=== PATIENT | male | born 1960 | race Caucasian/White ===

== ENCOUNTER → 2016-10-03 | Outpatient (CLI) | payer OTHER ==
--- NOTE | 2016-10-03 09:57 | DIAGNOSTIC IMAGING REPORT ---
ULTRASOUND ABDOMEN COMPLETE CLINICAL HISTORY: Abnormal liver function studies. COMPARISON STUDY: No priors. TECHNIQUE: Real-time, grayscale, and color flow sonography of the abdomen was performed. Images are reviewed in the transverse and longitudinal planes. FINDINGS: Liver: The liver is top normal in size and demonstrates heterogeneously increased echotexture consistent with hepatic steatosis. There is no intrahepatic biliary ductal dilatation. The main portal vein is patent. Gallbladder: A 3 mm gallbladder polyp is incidentally noted. The gallbladder is otherwise normal in appearance. No gallstones are identified. There is no gallbladder wall thickening or pericholecystic fluid. A sonographic Crowley's sign is reportedly absent. The common bile duct measures up to 0.4 cm in diameter. Pancreas: Not well visualized due to overlying bowel gas. Spleen: The spleen is normal in size and echotexture, measuring 11.8 cm in length. Kidneys: The kidneys demonstrate mild cortical atrophy and are normal in echotexture. There is no hydronephrosis. The right kidney measures 11.1 cm in length and the left kidney measures 11.2 cm in length. No shadowing calculi are identified. There is an irregular hypoechoic region identified in the lower pole of left kidney. This measures approximately 4 x 3 x 3 cm. Abdominal vasculature: Visualized portions of the abdominal aorta are normal in appearance. Ascites: None. IMPRESSION: 1. Hepatomegaly and hepatic steatosis. 2. A 3 m gallbladder polyp is incidentally noted. 3. The pancreas was not well visualized due to overlying bowel gas. 4. There is focal irregularity/thickening suggested in the lower pole of the left kidney. Follow-up with a contrast-enhanced abdominal CT is recommended to exclude underlying renal mass. Electronically signed by: Devendra Palencia M.D. 10/03/2016 9:56 AM Dictated Date/Time: 10/03/2016 9:53 AM
== END | disposition home or self-care (01) ==
LOC: C.ULTR 08:58
PROVIDERS: ATTEND Family Medicine
DX: R94.5 Abnormal results of liver function studies (principal)

== ENCOUNTER → 2016-10-16 | Outpatient (CLI) | payer OTHER ==
[~2016-10-16] MED LIST: OPTIRAY 320 IV PRN
--- NOTE | 2016-10-16 13:13 | DIAGNOSTIC IMAGING REPORT ---
ABDOMEN AND PELVIS CT EXAMINATION PRE AND POST INTRAVENOUS CONTRAST CT DOSE: 2276.77 mGycm HISTORY: Renal mass ABN ULTRASOUND, R/O RENAL MASS TECHNIQUE: Multiaxial CT images of the abdomen and pelvis were performed pre and post intravenous contrast enhancement. COMPARISON STUDY: Ultrasound dated 10/03/2016. FINDINGS: Lung bases are clear. Liver enhances uniformly. Gallbladder is negative for distention. Right kidney demonstrates a 5 mm cyst is lower pole. Enhancement characteristics otherwise are uniform. Left kidney demonstrates a 2.5 cm cyst at its lower pole. This is slightly hyperdense. It shows no abnormal enhancement characteristics. No well-defined additional abnormalities identified. There is a cortical scar lateral aspect left kidney. This again shows no abnormal enhancement characteristics. The adrenal glands are unremarkable. Bowel pattern is nonobstructive throughout. Bladder is midline. Ureters normal in course and caliber. No filling defects within the bladder appreciated. There is no significant abdominal pelvic or inguinal adenopathy. IMPRESSION: 1. Lower pole slightly hyperdense left renal cyst. 2. This is a combined with immediately adjacent cortical scar considered benign. 3. No pathologic lesions are identified of the ultrasonic findings appear to be benign. 4. Small right renal cyst. 5. Otherwise negative abdomen and pelvis Electronically signed by: Elvin Chavez M.D. 10/16/2016 1:12 PM Dictated Date/Time: 10/16/2016 1:07 PM
== END | disposition home or self-care (01) ==
LOC: C.CTS 10:20
PROVIDERS: ATTEND Family Medicine
DX: R93.422 Abnormal radiologic findings on diagnostic imaging of left kidney (principal); N28.1 Cyst of kidney, acquired

== ENCOUNTER → 2017-08-05 | Day surgery (SDC) | payer OTHER ==
[2017-07-22 10:43] VITALS: Ht 175.3 cm; Wt 79.5 kg
[~2017-08-05] VITALS: Ht 175.3 cm; Wt 79.5 kg
[~2017-08-05] MED LIST changes: +ATOR10TA82 PO; +LIDOCAINE HCL 2% 2 ML VIAL (20MG/ML) ONE; +MIDAZOLAM HCL 1 MG/ML 2ML VIAL ONE; -OPTIRAY 320 IV PRN; +PROPOFOL IV EMULSION 10 MG/ML 20 ML VIAL IV ONE; +SODIUM CHLORIDE 0.9% 500ML 500 ML IV ONE; +VALSARTAN PO
--- NOTE | 2017-08-05 09:58 | Endo History and Physical ---
History & Physical Date of Service: Aug 05, 2017. Chief Complaint: Constipation Referring Physician: Dr Adams History of Present Illness 57 yo CM who presents for colonoscopy secondary to change in bowel habits. Past Surgical History Hx Cardiac Surgery: No Hx Internal Defibrillator: No Hx Pacemaker: No Hx Abdominal Surgery: No Hx of Implantable Prosthesis: No Hx Post-Op Nausea and Vomiting: No Hx Cancer Surgery: Yes (ACDF AND C5-7 FUSION) Hx Thoracic Surgery: No Hx Orthopedic: No Hx Urinary Tract Surgery: No Family History None Social History Smoking Status: Former Smoker Hx Substance Use: No Hx Alcohol Use: Yes (1-2 DRINKS WEEKLY) Allergies Coded Allergies: NO KNOWN DRUG ALLERGIES (Verified Allergy, Unknown, ., 07/22/17) Current Medications Reported Home Medications Medications Dose Route/Sig Max Daily Dose Days Date Category Dose Instructions Lipitor (Atorvastatin Calcium) 10 Mg Tab 10 Mg PO QPM 07/22/17 Reported [Valsartan] 1 Tab PO QPM 07/22/17 Reported DOSE NOT HAVE MEDICATION/DOSE AT THIS TIME Vital Signs Weight (Kilograms): 79.55 Height (Feet): 5 Height (Inches): 9 Physical Exam General Appearance: WD/WN, no apparent distress Respiratory/Chest: Auscultation: breath sounds normal Cardiovascular: Heart Auscultation: RRR Abdomen: Bowel Sounds: normal Inspection & Palpation: soft, non-distended, no tenderness, guarding & rebound Assessment and Plan Assessment: 57 yo CM who presents for colonoscopy secondary to change in bowel habits. Plan: Proceed with colonoscopy.
[2017-08-05 10:11] VITALS: TEMP 37
--- NOTE | 2017-08-05 11:26 | Discharge Instructions ---
Endoscopy Patient Instructions Date / Procedure(s) Performed Aug 05, 2017. Colonoscopy Allergy Information Coded Allergies: NO KNOWN DRUG ALLERGIES (Verified Allergy, Unknown, ., 07/22/17) Discharge Date / Findings Aug 05, 2017. Internal hemorrhoids Medication Instructions OK to resume all medications today as prescribed Reported Home Medications Medications Dose Route/Sig Max Daily Dose Days Date Category Dose Instructions Lipitor (Atorvastatin Calcium) 10 Mg Tab 10 Mg PO QPM 07/22/17 Reported [Valsartan] 1 Tab PO QPM 07/22/17 Reported DOSE NOT HAVE MEDICATION/DOSE AT THIS TIME Provider Instructions Activity Restrictions - No exercising or heavy lifting for 24 hours. - Do not drink alcohol the day of the procedure. - Do not drive a car or operate machinery until the day after the procedure. - Do not make any important decisions or sign important papers in 24 hours after the procedure. Following Day: - Return to full activity which may include returning to work/school. Diet Start your diet with liquids and light foods (jello, soup, juice, toast). Then eat your usual diet if not nauseated. Treatment For Common After Affects For mild abdominal pain, bloating, or excessive gas: - Rest - Eat lightly - Lie on right side Follow-Up Information Follow-up with Dr Adams as scheduled Anesthesia Information What You Should Know You have had a procedure that required some medicine to reduce anxiety and discomfort. This treatment is called moderate sedation. After receiving the treatment, you may be sleepy, but you will be able to breathe on your own. The effects of the treatment may last for several hours. Follow these instructions along with Activity/Diet recommendations noted above: * Do NOT do anything where dizziness or clumsiness would be dangerous. * Rest quietly at home today, then you can be up and about tomorrow. * Have a responsible person stay with you the rest of today. * You may have had an I.V. today. If so, you may take the dressing off later today. Recommendations Call your doctor if: * Trouble breathing * Continuous vomiting for more than 24 hours * Temperature above 101 degrees * Severe abdominal pain or bloating * Pain not relieved by pain medicine ordered * There is increased drainage or redness from any incision * A large amount of rectal bleeding greater than 2-3 tablespoons. (If you had a polyp/s removed or have hemorrhoids, a small amount of blood - from the rectum is to be expected.) * You have any unanswered questions or concerns. IN THE EVENT OF A SERIOUS EMERGENCY, GO TO THE NEAREST EMERGENCY ROOM Your discharge instructions were prepared by provider Cam Garza. Patient Instructions Signature Page Deric Allison Patient (or Guardian) Signature/Date: I have read and understand the instructions given to me by my caregivers. Caregiver/RN/Doctor Signature/Date: The above-named patient and/or guardian has received patient instructions on this date. + Original Patient Signature Page (only) stays with chart. Please make copy for patient.
--- NOTE | 2017-08-05 11:30 | GI REPORT ---
Procedure Date: 08/05/2017 10:57 AM Procedure: Colonoscopy Indications: Change in bowel habits Medicines: Monitored Anesthesia Care Complications: No immediate complications. Estimated Blood Loss: Estimated blood loss: none. Procedure: Pre-Anesthesia Assessment: - Prior to the procedure, a History and Physical was performed, and patient medications and allergies were reviewed. The patient's tolerance of previous anesthesia was also reviewed. The risks and benefits of the procedure and the sedation options and risks were discussed with the patient. All questions were answered, and informed consent was obtained. Prior Anticoagulants: The patient has taken no previous anticoagulant or antiplatelet agents. ASA Grade Assessment: II - A patient with mild systemic disease. After reviewing the risks and benefits, the patient was deemed in satisfactory condition to undergo the procedure. After I obtained informed consent, the scope was passed under direct vision. Throughout the procedure, the patient's blood pressure, pulse, and oxygen saturations were monitored continuously. The scope was introduced through the anus and advanced to the terminal ileum. The colonoscopy was performed without difficulty. The patient tolerated the procedure well. The quality of the bowel preparation was good. The terminal ileum, ileocecal valve, appendiceal orifice, and rectum were photographed. Findings: The perianal and digital rectal examinations were normal. Non-bleeding internal hemorrhoids were found during retroflexion. The hemorrhoids were small. Impression: - Non-bleeding internal hemorrhoids. - No specimens collected. Recommendation: - Resume previous diet. - Continue present medications. - Repeat colonoscopy in 10 years for surveillance. - Return to primary care physician as previously scheduled. Cam Garza DO 08/05/2017 11:30:04 AM This report has been signed electronically. Note Initiated On: 08/05/2017 10:57 AM I attest to the content of the Intraoperative Record and orders documented therein, exceptions below
[2017-08-05 12:00] VITALS: BP 125/93; PULSE 82; O2SAT 97
--- NOTE | 2017-08-05 12:05 | Anesthesiology Progress Note ---
Anesthesia Post Op Note Date & Time Aug 05, 2017 at 12:05 Vital Signs Pain Intensity: 0 Vital Signs Past 12 Hours Date Time Temp Pulse Resp B/P (MAP) Pulse Ox O2 Delivery O2 Flow Rate FiO2 08/05/17 12:00 82 18 125/93 (104) 97 Room Air 08/05/17 11:45 82 18 115/87 (96) 100 Room Air 08/05/17 11:30 100 12 101/67 (78) 100 Room Air 08/05/17 10:11 37.0 101 20 144/90 (108) 98 Room Air Notes Mental Status: alert / awake / arousable, participated in evaluation Pt Amnestic to Procedure: Yes Nausea / Vomiting: adequately controlled Pain: adequately controlled Airway Patency, RR, SpO2: stable & adequate BP & HR: stable & adequate Hydration State: stable & adequate Anesthetic Complications: no major complications apparent
== END | disposition home or self-care (01) ==
LOC: C.GI 09:37
PROVIDERS: ATTEND Internal Medicine
DX: R19.4 Change in bowel habit (principal); K64.8 Other hemorrhoids; I10 Essential (primary) hypertension; K21.9 Gastro-esophageal reflux disease without esophagitis; Z98.890 Other specified postprocedural states; Z79.899 Other long term (current) drug therapy; Z87.891 Personal history of nicotine dependence

== ENCOUNTER → 2017-08-13 | Outpatient (CLI) | payer OTHER ==
[~2017-08-13] MED LIST changes: -LIDOCAINE HCL 2% 2 ML VIAL (20MG/ML) ONE; -MIDAZOLAM HCL 1 MG/ML 2ML VIAL ONE; -PROPOFOL IV EMULSION 10 MG/ML 20 ML VIAL IV ONE; -SODIUM CHLORIDE 0.9% 500ML 500 ML IV ONE
--- NOTE | 2017-08-13 11:23 | DIAGNOSTIC IMAGING REPORT ---
ABDOMEN COMPLETE (US) CLINICAL HISTORY: Generalized abdominal pain COMPARISON STUDY: 10/03/2016 FINDINGS: The visualized portions of the pancreas appear normal. The liver appears sonographically normal. There is no ductal dilatation. The common bile duct measures 3 mm. A few tiny gallbladder polyps are visualized. No calculi are evident. The spleen appears sonographically normal. The right kidney measures 11.6 cm. There is an 11 mm lower pole right renal cyst. The left kidney measures 11.6 cm in length. There is a 7 mm echogenic focus within the lower pole. There is a 4 cm parapelvic cyst. There is no evidence of abdominal aortic dilatation. IMPRESSION: 1. Tiny gallbladder polyps 2. Ultrasonographically normal liver spleen and pancreas. No evidence of ductal dilatation 3. 9 mm right renal cyst. 4 cm left renal parapelvic cyst. Nonspecific 7 mm echogenic focus within the lower pole the left kidney. 4. Mildly irregular enlarged prostate Electronically signed by: Garth Adam M.D. 08/13/2017 11:21 AM Dictated Date/Time: 08/13/2017 11:16 AM
== END | disposition home or self-care (01) ==
LOC: C.ULTR 10:05
PROVIDERS: ATTEND Family Medicine
DX: R94.5 Abnormal results of liver function studies (principal); K82.4 Cholesterolosis of gallbladder; N28.1 Cyst of kidney, acquired

== ENCOUNTER → 2017-12-01 | Day surgery (SDC) | payer OTHER ==
[2017-11-19 15:28] VITALS: Ht 175.3 cm; Wt 79.5 kg
[~2017-12-01] VITALS: Ht 175.3 cm; Wt 79.5 kg
[~2017-12-01] MED LIST changes: +LIDOCAINE HCL 2% 2 ML VIAL (20MG/ML) ONE; +MIDAZOLAM HCL 1 MG/ML 2ML VIAL ONE; +PANT40TA PO; +PROPOFOL IV EMULSION 10 MG/ML 20 ML VIAL IV ONE; +SODIUM CHLORIDE 0.9% 500ML 500 ML IV ONE
--- NOTE | 2017-12-01 11:01 | Endo History and Physical ---
History & Physical Date of Service: Dec 01, 2017. Chief Complaint: RUQ pain and bloating Referring Physician: Dr. Love Adams History of Present Illness 57 yo CM who presents for EGD secondary to RUQ abdominal pain and bloating. Past Surgical History Hx Cardiac Surgery: No Hx Internal Defibrillator: No Hx Pacemaker: No Hx Abdominal Surgery: No Hx of Implantable Prosthesis: No Hx Post-Op Nausea and Vomiting: No Hx Cancer Surgery: Yes (ACDF AND C5-7 FUSION) Hx Thoracic Surgery: No Hx Orthopedic: No Hx Urinary Tract Surgery: No Family History None Social History Smoking Status: Former Smoker Hx Substance Use: No Hx Alcohol Use: Yes (1-2 DRINKS WEEKLY) Allergies Coded Allergies: NO KNOWN DRUG ALLERGIES (Verified Allergy, Unknown, ., 11/19/17) Current Medications Reported Home Medications Medications Dose Route/Sig Max Daily Dose Days Date Category Dose Instructions Protonix (Pantoprazole Sodium) 40 Mg Tab 40 Mg PO QAM 11/19/17 Reported [Valsartan] 1 Tab PO QAM 07/22/17 Reported DOSE NOT HAVE MEDICATION/DOSE AT THIS TIME Vital Signs Weight (Kilograms): 79.55 Height (Feet): 5 Height (Inches): 9 Date Time Temp Pulse Resp B/P (MAP) Pulse Ox O2 Delivery O2 Flow Rate FiO2 12/01/17 09:53 36.7 86 20 147/96 (113) 100 Room Air Physical Exam General Appearance: WD/WN, no apparent distress Respiratory/Chest: Auscultation: breath sounds normal Cardiovascular: Heart Auscultation: RRR Abdomen: Bowel Sounds: normal Inspection & Palpation: soft, non-distended, no tenderness, guarding & rebound Assessment and Plan Assessment: 57 yo CM who presents for EGD secondary to RUQ abdominal pain and bloating. Plan: Proceed with EGD.
--- NOTE | 2017-12-01 11:19 | Discharge Instructions ---
Endoscopy Patient Instructions Date / Procedure(s) Performed Dec 01, 2017. EGD Allergy Information Coded Allergies: NO KNOWN DRUG ALLERGIES (Verified Allergy, Unknown, ., 11/19/17) Discharge Date / Findings Dec 01, 2017. Gastritis s/p biopsies Hiatal hernia Medication Instructions OK to resume all medications today as prescribed Reported Home Medications Medications Dose Route/Sig Max Daily Dose Days Date Category Dose Instructions Protonix (Pantoprazole Sodium) 40 Mg Tab 40 Mg PO QAM 11/19/17 Reported [Valsartan] 1 Tab PO QAM 07/22/17 Reported DOSE NOT HAVE MEDICATION/DOSE AT THIS TIME Provider Instructions Activity Restrictions - No exercising or heavy lifting for 24 hours. - Do not drink alcohol the day of the procedure. - Do not drive a car or operate machinery until the day after the procedure. - Do not make any important decisions or sign important papers in 24 hours after the procedure. Following Day: - Return to full activity which may include returning to work/school. Diet Start your diet with liquids and light foods (jello, soup, juice, toast). Then eat your usual diet if not nauseated. Treatment For Common After Affects For mild abdominal pain, bloating, or excessive gas: - Rest - Eat lightly - Lie on right side Follow-Up Information Follow-up with Dr. Love Adams as scheduled Anesthesia Information What You Should Know You have had a procedure that required some medicine to reduce anxiety and discomfort. This treatment is called moderate sedation. After receiving the treatment, you may be sleepy, but you will be able to breathe on your own. The effects of the treatment may last for several hours. Follow these instructions along with Activity/Diet recommendations noted above: * Do NOT do anything where dizziness or clumsiness would be dangerous. * Rest quietly at home today, then you can be up and about tomorrow. * Have a responsible person stay with you the rest of today. * You may have had an I.V. today. If so, you may take the dressing off later today. Recommendations Call your doctor if: * Trouble breathing * Continuous vomiting for more than 24 hours * Temperature above 101 degrees * Severe abdominal pain or bloating * Pain not relieved by pain medicine ordered * There is increased drainage or redness from any incision * A large amount of rectal bleeding greater than 2-3 tablespoons. (If you had a polyp/s removed or have hemorrhoids, a small amount of blood - from the rectum is to be expected.) * You have any unanswered questions or concerns. IN THE EVENT OF A SERIOUS EMERGENCY, GO TO THE NEAREST EMERGENCY ROOM Your discharge instructions were prepared by provider Cam Garza. Patient Instructions Signature Page Deric Allison Patient (or Guardian) Signature/Date: I have read and understand the instructions given to me by my caregivers. Caregiver/RN/Doctor Signature/Date: The above-named patient and/or guardian has received patient instructions on this date. + Original Patient Signature Page (only) stays with chart. Please make copy for patient.
--- NOTE | 2017-12-01 11:27 | GI REPORT ---
Procedure Date: 12/01/2017 10:35 AM Procedure: Upper GI endoscopy Indications: Abdominal pain in the right upper quadrant Medicines: Monitored Anesthesia Care Complications: No immediate complications. Estimated Blood Loss: Estimated blood loss: none. Procedure: Pre-Anesthesia Assessment: - Prior to the procedure, a History and Physical was performed, and patient medications and allergies were reviewed. The patient's tolerance of previous anesthesia was also reviewed. The risks and benefits of the procedure and the sedation options and risks were discussed with the patient. All questions were answered, and informed consent was obtained. Prior Anticoagulants: The patient has taken no previous anticoagulant or antiplatelet agents. ASA Grade Assessment: II - A patient with mild systemic disease. After reviewing the risks and benefits, the patient was deemed in satisfactory condition to undergo the procedure. After obtaining informed consent, the endoscope was passed under direct vision. Throughout the procedure, the patient's blood pressure, pulse, and oxygen saturations were monitored continuously. The scope was introduced through the mouth, and advanced to the second part of duodenum. The upper GI endoscopy was accomplished without difficulty. The patient tolerated the procedure well. Findings: The esophagus was normal. A small hiatal hernia was present. Localized mild inflammation characterized by erythema was found in the gastric antrum. Biopsies were taken with a cold forceps for histology. The examined duodenum was normal. Impression: - Normal esophagus. - Small hiatal hernia. - Gastritis. Biopsied. - Normal examined duodenum. Recommendation: - Resume previous diet. - Continue present medications. - Await pathology results. - Return to primary care physician as previously scheduled. Cam Garza DO 12/01/2017 11:27:18 AM This report has been signed electronically. Note Initiated On: 12/01/2017 10:35 AM I attest to the content of the Intraoperative Record and orders documented therein, exceptions below
--- NOTE | 2017-12-01 11:29 | Anesthesiology Progress Note ---
Anesthesia Post Op Note Date & Time Dec 01, 2017 at 11:29 Vital Signs Pain Intensity: 2 Vital Signs Past 12 Hours Date Time Temp Pulse Resp B/P (MAP) Pulse Ox O2 Delivery O2 Flow Rate FiO2 12/01/17 11:22 36.0 88 20 99/69 (79) 94 Room Air 12/01/17 09:53 36.7 86 20 147/96 (113) 100 Room Air Notes Mental Status: alert / awake / arousable, participated in evaluation Pt Amnestic to Procedure: Yes Nausea / Vomiting: adequately controlled Pain: adequately controlled Airway Patency, RR, SpO2: stable & adequate BP & HR: stable & adequate Hydration State: stable & adequate Anesthetic Complications: no major complications apparent
[2017-12-01 11:52] VITALS: BP 115/84; PULSE 80; O2SAT 98
== END | disposition home or self-care (01) ==
LOC: C.GI 09:29
PROVIDERS: ATTEND Internal Medicine
DX: R10.11 Right upper quadrant pain (principal); K44.9 Diaphragmatic hernia without obstruction or gangrene; K31.89 Other diseases of stomach and duodenum; I10 Essential (primary) hypertension; Z87.891 Personal history of nicotine dependence

== ENCOUNTER → 2017-12-10 | Outpatient (CLI) | payer OTHER ==
[~2017-12-10] MED LIST changes: -ATOR10TA82 PO; -LIDOCAINE HCL 2% 2 ML VIAL (20MG/ML) ONE; -MIDAZOLAM HCL 1 MG/ML 2ML VIAL ONE; -PROPOFOL IV EMULSION 10 MG/ML 20 ML VIAL IV ONE; -SODIUM CHLORIDE 0.9% 500ML 500 ML IV ONE
[2017-12-10 17:17] LABS: ALBUMIN 4.2 gm/dl (3.4-5.0); TOTAL PROTEIN 7.3 gm/dl (6.4-8.2)
== END | disposition home or self-care (01) ==
LOC: C.LABBC 12:31
PROVIDERS: ATTEND Registered Nurse
DX: R11.0 Nausea (principal)

== ENCOUNTER → 2017-12-22 | Outpatient (CLI) | payer OTHER ==
[~2017-12-22] MED LIST changes: +SINCALIDE INJ 1.6 MCG in SODIUM CHLORIDE 0.9% 100ML 100 ML IV ONE
--- NOTE | 2017-12-22 14:59 | DIAGNOSTIC IMAGING REPORT ---
HEPATOBILIARY EF IMAGING CLINICAL HISTORY: 57 years-old Male with R10.11 Chronic right upper quadrant painR14.0 [id number] Hype. Chronic right upper quadrant abdominal pain TECHNIQUE: Following the intravenous administration of 5.6 mCi of technetium-99m Choletec, sequential abdominal images were obtained. In order to evaluate the contractile response of the gallbladder, 1.6 mcg of Kinevac was administered by slow intravenous infusion over 30 min starting approximately 60 min after the administration of the radiopharmaceutical. Sequential imaging was continued for 45 min after the start of the Kinevac infusion. COMPARISON: Abdominal ultrasound 08/13/2017 FINDINGS: There is prompt, uniform accumulation of the tracer by the liver. There is normal filling of the intrahepatic ducts, common bile duct and gallbladder and normal excretion of the tracer into the duodenum. There is adequate contraction of the gallbladder. The calculated gallbladder ejection fraction is 65% (normal >40%). There is no significant enterogastric reflux. IMPRESSION: 1. Normal contractile response of the gallbladder to Kinevac infusion. 2. Normal biliary imaging study. The above report was generated using voice recognition software. It may contain grammatical, syntax or spelling errors. Electronically signed by: Oswald Parekh M.D. 12/22/2017 2:58 PM Dictated Date/Time: 12/22/2017 2:55 PM
== END | disposition home or self-care (01) ==
LOC: C.NUCL 12:39
PROVIDERS: ATTEND Registered Nurse
DX: E80.6 Other disorders of bilirubin metabolism (principal); R11.0 Nausea; R14.0 Abdominal distension (gaseous); R10.11 Right upper quadrant pain

== ENCOUNTER 2020-06-13 20:24 | Inpatient (IN) ==
[2020-06-13] MEDS ORDERED: HYDROmorphone INJ 1 MG/ML SYRINGE IV STA (21:03)
[2020-06-13] MEDS ORDERED: SODIUM CHLORIDE 0.9% 1000ML 1,000 ML IV ONE ×2 (21:03→22:44)
[2020-06-13] MEDS ORDERED: ONDANSETRON INJ 2 MG/ML 2 ML VIAL IV STA ×2 (21:04→22:44)
[2020-06-13 21:07] LABS: Basophils # (auto) 0.03 K/uL (0-0.2); Basophils % (auto) 0.3 %; Eosinophils # (auto) 0.25 K/uL (0-0.5); Eosinophils % (auto) 2.4 %; Hematocrit (blood only) 48.2 % (42-52); Hemoglobin 15.9 g/dL (14.0-18.0); Immature Granulocytes # (auto) 0.03 K/uL (0.00-0.02); Immature Granulocytes % (auto) 0.3 %; Lymphocytes # (auto) 3.69 K/uL (1.2-3.4); Lymphocytes % (auto) 35.5 %; Mean Corpuscular Hemoglobin 29.2 pg (25-34); Mean Corpuscular Volume 88.6 fL (80-100); Mean Platelet Volume 9.1 fL (7.4-10.4); Monocytes # (auto) 1.03 K/uL (0.11-0.59); Monocytes % (auto) 9.9 %; Neutrophils # (auto) 5.35 K/uL (1.4-6.5); Neutrophils % (auto) 51.6 %; Platelet Count 306 K/uL (130-400); RDW Coefficient of Variation 13.1 % (11.5-14.5); RDW Standard Deviation 42.4 fL (36.4-46.3); Red Blood Count 5.44 M/uL (4.7-6.1); White Blood Count 10.38 K/uL (4.8-10.8)
[2020-06-13 21:26] LABS: Albumin Level 3.9 gm/dl (3.4-5.0); BUN Creatinine Ratio 14.8 (10-20); Creatinine Clr Calc Pharmacy 74.7 ml/min; Est GFR (African American) 81.7; Est GFR (Non-African American) 70.5; Potassium 3.7 mmol/L (3.5-5.1)
[2020-06-13 21:30] LABS: Albumin Globulin Ratio 1.3 (0.9-2); Bilirubin,Total 1.6 mg/dl (0.2-1); Total Protein 6.9 gm/dl (6.4-8.2)
[2020-06-13] MEDS ORDERED: MoRPHine SULFATE 10 MG/ML CARP/VIAL IV STA (22:44)
--- NOTE | 2020-06-13 22:50 | Emergency Department Note ---
Impression & Plan Renal colic, Flank Pain, Hydronephrosis, Hydroureter, Vomiting ED Provider Note NAME: DEEP DOWD AGE: 60 SEX: M : 1960 ARRIVES VIA: Walk-In INFORMANT: Patient ED PROVIDER(S): Osmel Eisenebrg DO CHIEF COMPLAINT: Flank pain HPI: Patient is a 60-year-old male who presents the ER for left-sided flank pain. It started several hours prior to arrival. He describes it as sharp and stabbing. Is not moving. Associated with nausea. No vomiting. Is an 8 out of 10. No other exacerbating or remitting factors. This feels like his previous kidney stone but much worse. No previous belly surgeries. Last stone was in [place] about 10 years ago. Denies any dysuria urgency or frequency. ROS: See above HPI for pertinent positives & negatives. A total of 10 systems reviewed and were otherwise negative. PAST MEDICAL HISTORY:See Below PAST SURGICAL HISTORY:See Below FAMILY HISTORY:See Below SOCIAL HISTORY:See Below HOME MEDICATIONS:See Below ALLERGIES:See Below VITALS:See Below PHYSICAL EXAMINATION: GENERAL: Sitting up in bed, alert, moderate distress, left flank pain EYE EXAM: normal conjunctiva. OROPHARYNX: no exudate, no erythema, lips, buccal mucosa, and tongue normal and mucous membranes are moist NECK: supple, no nuchal rigidity, no adenopathy, non-tender LUNGS: Clear to auscultation. Normal chest wall mechanics HEART: no murmurs, S1 normal and S2 normal ABDOMEN: abdomen soft, non-tender, normo-active bowel sounds, no masses, no r ebound or guarding. BACK: Back is symmetrical on inspection and there is no deformity, no midline t enderness, no CVA tenderness. SKIN: no rashes and no bruising UPPER EXTREMITIES: upper extremities are grossly normal. LOWER EXTREMITIES: No pitting edema. NEURO EXAM: Normal sensorium, cranial nerves II-XII grossly intact, normal speech, no gross weakness of arms, no gross weakness of legs. MEDICAL DECISION MAKING: Patient is a 60-year-old male who presents the ER for severe left flank pain. IV was established blood work was obtained. Labs show no significant leukocytosis or anemia. BMP with a slightly elevated chloride. LFTs bilirubin and lipase is unremarkable. UA was negative. CT abdomen pelvis shows 6 mm left distal ureter stone with hydroureter and hydronephrosis. He was given multiple dose of IV narcotics and Zofran. He continued to vomit. Discussed with the hospitalist. He was placed on 2 L nasal cannula secondary to the pain meds. Admitted for further work-up. Triage Nursing notes reviewed. Prior medical records reviewed Vital Signs: reviewed and remarkable for no significant abnormalities Differential diagnosis: Differential diagnoses includes but is not limited to gastritis, peptic ulcer disease, GERD, gallbladder disease, pancreatitis, small bowel obstruction, acute coronary syndrome, pericarditis, ischemic bowel, irritable bowel disease, irritable bowel syndrome, appendicitis, diverticulitis, malignancy, hernia, urinary tract infection, torsion,, perforation, trauma, infectious. ER treatment provided: See below Diagnostics interpreted by me: ECG: none Cardiac Monitoring: An order was placed for continuous cardiac monitoring. The monitor shows a rate of 80 with sinus rhythm. Laboratory studies: As stated above and show below. Imaging studies: CT abdomen pelvis shows 6 mm distal ureter stone with hydronephrosis. Consultation(s): Discussed with Dr. Dashawn Plascencia for further evaluation ED COURSE: Procedures: none Critical Care: None Past Med/Surg History Social History Smoking Status: Former smoker Tobacco Type: Cigarettes Preferred Language: Angolan Feels Safe at Home: Yes Allergies Allergies Allergy/AdvReac Type Severity Reaction Status Date / Time No Known Drug Allergies Allergy Unknown . Verified 06/11/20 11:38 Home Meds Home Medications Medication Instructions Recorded Confirmed atorvastatin 10 mg tablet 10 mg PO DAILY 06/11/20 06/13/20 valsartan 40 mg tablet 40 mg PO DAILY tab 06/11/20 06/13/20 polyethylene glycol 3350 [Miralax] 17 g PO DAILY PRN 06/13/20 06/13/20 simethicone [Gas-X] 80 mg PO BID PRN 06/13/20 06/13/20 Previous Rx's Medication Instructions Recorded pantoprazole 40 mg tablet,delayed 40 mg PO DAILY #30 tab 06/11/20 release psyllium seed (sugar) oral powder 1 tbsp PO DAILY #1254 g 06/12/20 Results & Data (ED) Vital Signs Vital Signs - 24 hr 06/13/20 20:29 06/13/20 21:27 06/13/20 23:04 Temperature 37.1 C Temperature Source Oral Pulse Rate 87 Pulse Rate [Finger] 74 Respiratory Rate 18 18 Respiratory Effort / Characteristics Non-Labored Spontaneous Respiratory Depth Normal Normal Blood Pressure 166/100 H Blood Pressure [Left Arm] 137/100 Blood Pressure Mean 122 Blood Pressure Mean [Left Arm] 112 Pulse Oximetry 96 93 88 L Oxygen Delivery Method Room Air Room Air Room Air Oxygen Flow Rate Sepsis Recent Fever Within 48 Hours No Sepsis New/Unexplained Change in Mental Status No Sepsis Action Taken by Nursing No Action Required Oxygen Flow Rate - Titration 2 Pulse Oximetry Post Tiitration 96 06/13/20 23:41 06/14/20 00:45 Temperature Temperature Source Pulse Rate Pulse Rate [Finger] 84 90 Respiratory Rate 18 18 Respiratory Effort / Characteristics Respiratory Depth Blood Pressure Blood Pressure [Left Arm] 153/104 H 162/115 H Blood Pressure Mean Blood Pressure Mean [Left Arm] 120 130 Pulse Oximetry 97 96 Oxygen Delivery Method Room Air Nasal Cannula Oxygen Flow Rate 2 Sepsis Recent Fever Within 48 Hours Sepsis New/Unexplained Change in Mental Status Sepsis Action Taken by Nursing Oxygen Flow Rate - Titration Pulse Oximetry Post Tiitration Laboratory Data Result diagrams: 06/13/20 20:54 06/13/20 20:54 Lab Results 06/13/20 06/13/20 06/14/20 Range/Units 20:54 20:54 00:16 WBC 10.38 (4.8-10.8) K/uL RBC 5.44 (4.7-6.1) M/uL Hgb 15.9 (14.0-18.0) g/dL Hct 48.2 (42-52) % MCV 88.6 (80-100) fL MCH 29.2 (25-34) pg MCHC 33.0 (32-36) g/dL RDW Std Deviation 42.4 (36.4-46.3) fL RDW Coeff of Royal 13.1 (11.5-14.5) % Plt Count 306 (130-400) K/uL MPV 9.1 (7.4-10.4) fL Immature Gran % (Auto) 0.3 % Neut % (Auto) 51.6 % Lymph % (Auto) 35.5 % [place] % (Auto) 9.9 % Eos % (Auto) 2.4 % Baso % (Auto) 0.3 % Neut # (Auto) 5.35 (1.4-6.5) K/uL Lymph # (Auto) 3.69 H (1.2-3.4) K/uL [place] # (Auto) 1.03 H (0.11-0.59) K/uL Eos # (Auto) 0.25 (0-0.5) K/uL Baso # (Auto) 0.03 (0-0.2) K/uL Immature Gran # (Auto) 0.03 H (0.00-0.02) K/uL Sodium 140 (136-145) mmol/L Potassium 3.7 (3.5-5.1) mmol/L Chloride 109 H (98-107) mmol/L Carbon Dioxide 25 (21-32) mmol/L Anion Gap 6.0 (3-11) BUN 17 (7-18) mg/dl Creatinine 1.14 (0.6-1.4) mg/dl Est Cr Clr Drug Dosing 74.7 ml/min Est GFR ( Amer) 81.7 Est GFR (Non-Af Amer) 70.5 BUN/Creatinine Ratio 14.8 (10-20) Glucose 123 H (70-99) mg/dl Calcium 9.0 (8.5-10.1) mg/dl Total Bilirubin 1.6 H (0.2-1) mg/dl AST 23 (15-37) U/L ALT 32 (12-78) U/L Alkaline Phosphatase 83 (45-117) U/L Total Protein 6.9 (6.4-8.2) gm/dl Albumin 3.9 (3.4-5.0) gm/dl Globulin 3.0 (2.5-4.0) gm/dl Albumin/Globulin Ratio 1.3 (0.9-2) Lipase 90 (73-393) U/L Urine Color Dark Yellow Urine Appearance Clear (Clear) Urine pH 5.0 (4.5-7.5) Ur Specific [place] 1.032 H (1.000-1.030) Urine Protein Trace H (Negative) Urine Glucose (UA) Negative (Negative) Urine Ketones Negative (Negative) Urine Blood 2+ H (Negative) Urine Nitrite Negative (Negative) Urine Bilirubin Negative (Negative) Urine Urobilinogen Negative (Negative) Ur Leukocyte Esterase Negative (Negative) Urine WBC (Auto) 1-5 (0-5) /hpf Urine RBC (Auto) 10-30 H (0-4) /hpf U Hyaline Cast (Auto) 1-5 (0-5) /lpf U Epithel Cells (Auto) 5-10 H (0-5) /lpf Urine Bacteria (Auto) Negative (Negative) Administered Medications Discontinued Medications Hydromorphone HCl (Hydromorphone Inj 1 Mg/Ml Syringe) 1 mg IV NOW STA Stop: 06/13/20 21:04 Last Admin: 06/13/20 21:23 Dose: 1 mg Documented by: [id number] Hydromorphone HCl (Hydromorphone Inj 0.5 Mg/0.5 Ml Syr) 0.5 mg IV NOW STA Stop: 06/14/20 00:21 Last Admin: 06/14/20 00:24 Dose: 0.5 mg Documented by: [id number] Sodium Chloride (Nss 1000ml) 1,000 mls @ 999 mls/hr IV .Q1H1M ONE Stop: 06/13/20 22:03 Last Infusion: 06/13/20 22:30 Dose: 0 mls/hr Documented by: [id number] Admin: 06/13/20 21:23 Dose: 999 mls/hr Documented by: [id number] Sodium Chloride (Nss 1000ml) 1,000 mls @ 999 mls/hr IV .Q1H1M ONE Stop: 06/13/20 23:44 Last Infusion: 06/14/20 00:11 Dose: 0 mls/hr Documented by: [id number] Admin: 06/13/20 22:58 Dose: 999 mls/hr Documented by: [id number] Morphine Sulfate (Morphine Sulfate 10 Mg/Ml Carp/Vial) 6 mg IV NOW STA Stop: 06/13/20 22:45 Last Admin: 06/13/20 22:58 Dose: 6 mg Documented by: [id number] Ondansetron HCl (Ondansetron Inj 2 Mg/Ml 2 Ml Vial) 4 mg IV NOW STA Stop: 06/13/20 21:05 Last Admin: 06/13/20 21:23 Dose: 4 mg Documented by: [id number] Ondansetron HCl (Ondansetron Inj 2 Mg/Ml 2 Ml Vial) 4 mg IV NOW STA Stop: 06/13/20 22:45 Last Admin: 06/13/20 22:59 Dose: 4 mg Documented by: [id number] Ondansetron HCl (Ondansetron Inj 2 Mg/Ml 2 Ml Vial) 4 mg IV NOW STA Stop: 06/14/20 00:21 Last Admin: 06/14/20 00:24 Dose: 4 mg Documented by: [id number] Discharge Plan Visit Data Chief Complaint: Flank Pain Stated Complaint: abdominal pain ED Provider: Osmel Eisenberg Discharge Problem: Renal colic, Flank Pain, Hydronephrosis, Hydroureter, Vomiting Forms Stand Alone Forms: [facility] Prescriptions Prescriptions: No Action Metamucil (sugar) Powder 1 tbsp PO DAILY Qty: 1254 RF: 0 atorvastatin 10 mg tablet 10 mg PO DAILY RF: 0 valsartan 40 mg tablet 40 mg PO DAILY RF: 0 pantoprazole 40 mg tablet,delayed release (DR/EC) 40 mg PO DAILY Qty: 30 RF: 2 simethicone [Gas-X] 80 mg Tablet,Chewable 80 mg PO BID PRN (Reason: Gi Upset) RF: 0 polyethylene glycol 3350 [Miralax] 17 gram/dose Powder 17 g PO DAILY PRN (Reason: Constipation) RF: 0 Discharge Problem: Hydronephrosis Qualifiers: Hydronephrosis type: unspecified Qualified Code(s): N13.30 - Unspecified hydronephrosis Vomiting Qualifiers: Vomiting type: unspecified Vomiting Intractability: unspecified Nausea presence: unspecified Qualified Code(s): R11.10 - Vomiting, unspecified
[2020-06-14] MEDS ORDERED: ONDANSETRON INJ 2 MG/ML 2 ML VIAL IV STA (00:20)
[2020-06-14] MEDS ORDERED: HYDROmorphone INJ 0.5 MG/0.5 ML SYR IV STA (00:20)
[2020-06-14 00:28] LABS: Appearance Urine Clear (Clear); Bacteria Urine Automated Negative (Negative); Bilirubin Urine Negative (Negative); Blood Urine 2+ (Negative); Color Urine Dark Yellow; Glucose Urine UA Negative (Negative); Ketones Urine Negative (Negative); Leukocyte Esterase Urine Negative (Negative); Nitrite Urine Negative (Negative); Protein Urine Trace (Negative); Specific Gravity Urine 1.032 (1.000-1.030); Urobilinogen Urine Negative (Negative)
--- NOTE | 2020-06-14 00:29 | History & Physical Report ---
Date of Service June 14, 2020 Assessment & Plan (1) Calculus of distal left ureter: 6 mm distal left ureteral calculus/moderate hydroureteronephrosis- N.p.o. NSS + KCl 20 mEq at 100 mils per hour Follow urine culture sensitivities Famotidine 20 mg IV every 12 hours Ceftriaxone 1 g IV daily Zofran 4 mg IV every 6 hours PRN Acetaminophen 1000 mg IV every 8 hours PRN mild pain or temperature Dilaudid 1 mg IV every 3 hours PRN severe pain Consult urology Present on Admission?: Yes (2) Hydronephrosis of left kidney: See above Present on Admission?: Yes (3) Hyperlipidemia: Hold atorvastatin 10 mg p.o. daily while n.p.o. Present on Admission?: Yes (4) Hypertension: Hold valsartan 1040 mg daily. Present on Admission?: Yes (5) GERD (gastroesophageal reflux disease): Change pantoprazole 40 mg p.o. daily to famotidine 20 mg IV every 12 hours while n.p.o. Present on Admission?: Yes History of Present Illness Chief Complaint: The patient presents to the emergency department with complaint of several hours of severe, sharp and stabbing, left flank and left lower quadrant pain. Primary Care Provider: Suzanne Adams DO The patient is a 60-year-old male with a past medical history including GERD, hyperlipidemia, hypertension, and kidney stone 10 years ago. He presents with recurrent symptoms as noted above. He denies any recent travels or sick exposu res. Work-up in the emergency department included a CT of abdomen pelvis, which showed a 6 mm distal left ureteral calculus, with moderate hydroureteronephrosis. Allergies Allergy/AdvReac Type Severity Reaction Status Date / Time No Known Drug Allergies Allergy Unknown . Verified 06/11/20 11:38 Home Medications Home Medications Medication Instructions Recorded Confirmed Type atorvastatin 10 mg tablet 10 mg PO DAILY 06/11/20 06/13/20 History pantoprazole 40 mg tablet,delayed 40 mg PO DAILY #30 tab 06/11/20 06/13/20 Rx release valsartan 40 mg tablet 40 mg PO DAILY tab 06/11/20 06/13/20 History psyllium seed (sugar) oral powder 1 tbsp PO DAILY #1254 g 06/12/20 06/13/20 Rx polyethylene glycol 3350 [Miralax] 17 g PO DAILY PRN 10/07/20 10/07/20 History simethicone [Gas-X] 80 mg PO BID PRN 06/13/20 06/13/20 History Past Med/Surg History Medical History (Updated 06/14/20 @ 03:58 by Dashawn Mart MD) GERD (gastroesophageal reflux disease) Hyperlipidemia Hypertension Social History Smoking Status: Former smoker Tobacco Type: Cigarettes Smoking End Date: 10 years ago; Hx Alcohol Use: Yes Hx Substance Use: No Preferred Language: Estonian Communication Ability: Effective Beliefs That Will Affect Care: None Current Living Situation: Spouse Other Information That Helps Us Care for You: No Feels Safe at Home: Yes Review of Systems Review of Systems: The patient denies chest pain, palpitations, shortness of breath, dyspnea on exertion, cough, lower extremity swelling, sore throat, fevers, chills, sweats, vomiting, diarrhea , constipation, blood in urine or stool, dysuria, urinary frequency or urgency, lightheadedness, dizziness, headache, memory loss, loss of consciousness, rash, abnormal bruising or bleeding, imbalance, focal or generalized weakness, numbness or tingling in arms or legs, generalized arthralgias or myalgias, neck pain, or night sweats. The review of systems is otherwise negative other than for that already noted above, and at least 10 systems have been reviewed. Physical Exam Physical Exam: The patient is awake, alert and oriented 3, well developed and well nourished, normocephalic and atraumatic, lying in bed and in mild to moderate acute distress due to left flank and left lower quadrant pain HEENT--PERRL, EOMI, mucous membranes and oropharynx dry. Neck--supple. No JVD. No bruits. Thyroid normal, trachea midline, no adenopathy. Heart--normal S1 and S2. No murmurs, rubs or gallops. Lungs--clear bilaterally, no respiratory distress, no accessory muscle use. Abdomen--normal bowel sounds and soft. Left flank and left lower quadrant tenderness. Nondistended. Extremities--no cyanosis or clubbing. No edema. Dermatologic--normal skin turgor, normal color, no abnormal lymph nodes, no rash. Neurologic--cranial nerves II through XII grossly intact. Rheumatologic--normal range of motion. Psychiatric--normal affect. Results & Data Results & Data ([facility]) Vital Signs (Past 12 Hours) Vital Signs Temp Pulse Pulse Resp BP BP Pulse Ox 06/13/20 23:41 84 18 153/104 H 97 06/13/20 23:04 88 L 06/13/20 21:27 74 18 137/100 93 06/13/20 20:29 98.8 F 87 18 166/100 H 96 Laboratory Results Laboratory Results WBC 10.38 K/uL (4.8-10.8) 06/13/20 20:54 RBC 5.44 M/uL (4.7-6.1) 06/13/20 20:54 Hgb 15.9 g/dL (14.0-18.0) 06/13/20 20:54 Hct 48.2 % (42-52) 06/13/20 20:54 MCV 88.6 fL (80-100) 06/13/20 20:54 MCH 29.2 pg (25-34) 06/13/20 20:54 MCHC 33.0 g/dL (32-36) 06/13/20 20:54 RDW Std Deviation 42.4 fL (36.4-46.3) 06/13/20 20:54 RDW Coeff of Royal 13.1 % (11.5-14.5) 06/13/20 20:54 Plt Count 306 K/uL (130-400) 06/13/20 20:54 MPV 9.1 fL (7.4-10.4) 06/13/20 20:54 Immature Gran % (Auto) 0.3 % 06/13/20 20:54 Neut % (Auto) 51.6 % 06/13/20 20:54 Lymph % (Auto) 35.5 % 06/13/20 20:54 [place] % (Auto) 9.9 % 06/13/20 20:54 Eos % (Auto) 2.4 % 06/13/20 20:54 Baso % (Auto) 0.3 % 06/13/20 20:54 Neut # (Auto) 5.35 K/uL (1.4-6.5) 06/13/20 20:54 Lymph # (Auto) 3.69 K/uL (1.2-3.4) H 06/13/20 20:54 [place] # (Auto) 1.03 K/uL (0.11-0.59) H 06/13/20 20:54 Eos # (Auto) 0.25 K/uL (0-0.5) 06/13/20 20:54 Baso # (Auto) 0.03 K/uL (0-0.2) 06/13/20 20:54 Immature Gran # (Auto) 0.03 K/uL (0.00-0.02) H 06/13/20 20:54 Sodium 140 mmol/L (136-145) 06/13/20 20:54 Potassium 3.7 mmol/L (3.5-5.1) 06/13/20 20:54 Chloride 109 mmol/L (98-107) H 06/13/20 20:54 Carbon Dioxide 25 mmol/L (21-32) 06/13/20 20:54 Anion Gap 6.0 (3-11) 06/13/20 20:54 BUN 17 mg/dl (7-18) 06/13/20 20:54 Creatinine 1.14 mg/dl (0.6-1.4) 06/13/20 20:54 Est Cr Clr Drug Dosing 74.7 ml/min 06/13/20 20:54 Est GFR ( Amer) 81.7 06/13/20 20:54 Est GFR (Non-Af Amer) 70.5 06/13/20 20:54 BUN/Creatinine Ratio 14.8 (10-20) 06/13/20 20:54 Glucose 123 mg/dl (70-99) H 06/13/20 20:54 Calcium 9.0 mg/dl (8.5-10.1) 06/13/20 20:54 Total Bilirubin 1.6 mg/dl (0.2-1) H 06/13/20 20:54 AST 23 U/L (15-37) 06/13/20 20:54 ALT 32 U/L (12-78) 06/13/20 20:54 Alkaline Phosphatase 83 U/L (45-117) 06/13/20 20:54 Total Protein 6.9 gm/dl (6.4-8.2) 06/13/20 20:54 Albumin 3.9 gm/dl (3.4-5.0) 06/13/20 20:54 Globulin 3.0 gm/dl (2.5-4.0) 06/13/20 20:54 Albumin/Globulin Ratio 1.3 (0.9-2) 06/13/20 20:54 Lipase 90 U/L (73-393) 06/13/20 20:54 Urine Color Dark Yellow 06/14/20 00:16 Urine Appearance Clear (Clear) 06/14/20 00:16 Urine pH 5.0 (4.5-7.5) 06/14/20 00:16 Ur Specific [place] 1.032 (1.000-1.030) H 06/14/20 00:16 Urine Protein Trace (Negative) H 06/14/20 00:16 Urine Glucose (UA) Negative (Negative) 06/14/20 00:16 Urine Ketones Negative (Negative) 06/14/20 00:16 Urine Blood 2+ (Negative) H 06/14/20 00:16 Urine Nitrite Negative (Negative) 06/14/20 00:16 Urine Bilirubin Negative (Negative) 06/14/20 00:16 Urine Urobilinogen Negative (Negative) 06/14/20 00:16 Ur Leukocyte Esterase Negative (Negative) 06/14/20 00:16 Urine WBC (Auto) 1-5 /hpf (0-5) 06/14/20 00:16 Urine RBC (Auto) 10-30 /hpf (0-4) H 06/14/20 00:16 U Hyaline Cast (Auto) 1-5 /lpf (0-5) 06/14/20 00:16 U Epithel Cells (Auto) 5-10 /lpf (0-5) H 06/14/20 00:16 Urine Bacteria (Auto) Negative (Negative) 06/14/20 00:16 Diagnostic Findings [facility] Patient: DEEP DOWD (Male) : 64 Status: ER Date: 06/13/20 22:01 Room #: History: LEFT LATERAL ABD PAIN Slices: [id number] Priors: Catina: Miguel Ángel Burgos @ [phone] Exams: CT ABDOMEN & PELVIS Without Contrast Contrast: Accession Numbers: [id number] Preliminary Findings Only See Final Report For Complete Findings CT ABDOMEN & PELVIS Without Contrast: Compared to 10/16/16 6 mm distal left ureteral calculus causing moderate hydroureteronephrosis. Lower pole left intrarenal stone. Distended stomach. Unremarkable appendix. Small fatty umbilical hernia. Radiologist: Judd Khalil M.D. Study ready at 22:11 and initial results transmitted at 22:23 *This report constitutes a preliminary interpretation only. Non-acute findings felt to be unrelated to the clinical presentation may not be discussed in this report. The study will be interpreted and a final report will be generated by the local Radiologist the following shift. To reach the hospital radiology department call [phone]. If a discrepancy is found between the preliminary and final interpretations of this study, please notify us via our Client Portal at [email or web address] under QA Exams.You can also fax this report with a description of the discrepancy, or include the final report, to our daytime fax number [phone].If faxing, please indicate the severity of discrepancy using one of the following categories: [ ] 1 - Agree/Informational [ ] 2 - Unlikely to Affect Management [ ] 3 - Possible Eventual Change of Management [ ] 4 - Probable Immediate Change of Management For all other patient related information, please fax us at [phone]. [id number] Code Status & VTE Plan Code Status Full code VTE Prophylaxis Plan VTE Prophylaxis will be ordered: Yes PG Care Time/CCT Total # of Minutes Spent Total Time Spent with Patient: Total time spent is greater than 50% in coordination of care (as documented) at patient's floor/unit and/or counseling patient: Coding Level of Care Code 83159 Initial Inpt Care Lvl 3 Diagnoses Calculus of distal left ureter N20.1 Hydronephrosis of left kidney N13.30 Hyperlipidemia E78.5 Hypertension I10 GERD (gastroesophageal reflux disease) K21.9
[2020-06-14] MEDS ORDERED: ONDANSETRON INJ 2 MG/ML 2 ML VIAL IV PRN ×2 (01:44→17:28)
[2020-06-14] MEDS ORDERED: ACETAMINOPHEN 1000 MG/100 ML IV IV PRN (01:44)
[2020-06-14] MEDS ORDERED: METOPROLOL TARTRATE 1 MG/ML VIAL IV PRN ×2 (01:44→10:28)
[2020-06-14] MEDS ORDERED: hydrALAZINE HCL 20 MG/ML VIAL IV PRN (01:44)
[2020-06-14] MEDS ORDERED: POLYETHYLENE (MIRALAX) 17 GM PACK PO PRN (01:44)
[2020-06-14] MEDS ORDERED: HYDROmorphone INJ 1 MG/ML SYRINGE IV PRN ×2 (01:44→07:35)
[2020-06-14] MEDS ORDERED: NSS + 20MEQ KCL 20 MEQ/1,000 ML BAG IV SCH (02:30)
[2020-06-14] MEDS: cefTRIAXone SODIUM 2,000 MG in DEXTROSE 5% 50 ML IV SCH (02:58)
[2020-06-14] MEDS: FAMOTIDINE 20 MG in SYRINGE 3 ML IV SCH ×2 (05:25→19:59)
--- NOTE | 2020-06-14 07:33 | Hospitalist Progress Note ---
Date of Service June 14, 2020 Assessment & Plan (1) Atrial fibrillation: Patient is new onset atrial fibrillation rapid ventricular response he is asymptomatic. He is never had a history of similar episode. He responded to beta-federico therapy and oral beta-blockers were instituted. His chads score is 1 for hypertension. Echocardiogram is ordered. Magnesium was given. His electrolytes prior to this are replete as well as a TSH check. Hopefully patient can still undergo his procedure with ventricular rate control with beta- blockers I did personally speak with Dr. Sahu and feel the patient is cardiovascular stable with exception of occasional rates up into the low 100s he was given a dose of oral metoprolol late in the morning and will be continued on metoprolol twice daily with IV backup for higher rates (2) Calculus of distal left ureter: 6 mm distal left ureteral calculus/moderate hydroureteronephrosis- N.p.o. NSS 200 mils per hour Follow urine culture sensitivities Famotidine 20 mg IV every 12 hours Ceftriaxone 1 g IV daily Zofran 4 mg IV every 6 hours PRN Acetaminophen 1000 mg IV every 8 hours PRN mild pain or temperature Dilaudid 1 mg IV every 3 hours PRN severe pain Consult urology plans for cystoscopy in the afternoon on 06/14 (3) Hydronephrosis of left kidney: See above (4) Hyperlipidemia: Hold atorvastatin 10 mg p.o. daily while n.p.o. (5) Hypertension: Patient's valsartan will be held in favor of the metoprolol dose at this time (6) GERD (gastroesophageal reflux disease): Change pantoprazole 40 mg p.o. daily to famotidine 20 mg IV every 12 hours while n.p.o. Admission and Anticipated Discharge Date Admission Date: June 14, 2020 Subjective Patient was seen earlier morning he was having reasonable pain control some mild nausea. Later in the morning he developed nausea vomiting and subsequently I was notified that he developed atrial fibrillation with rapid ventricular response. This improved intravenous metoprolol. It appeared to be atrial fibrillation on the monitor. Patient was queried and never had a history of similar issues. Likely he had a thyroid test done 2 days prior to his admission which was unremarkable. This is likely situational related to the patient's discomfort. Patient will subsequently be started on metoprolol and echocardiogram will be undertaken in hopes of his rate is controlled with the metoprolol will be able to proceed to urological procedure to remove his kidney stone. His chads score is low as he only has a history of hypertension and his age is young. Because this is of recent onset and we have a time recorded in the computer will not begin formal anticoagulation and hopefully have the patient convert. He additionally was given a gram of magnesium at the time of his atrial fibrillation episode. Did speak to Dr. Sahu he does express a desire to proceed to surgery as he feels that his atrial fibrillation may be originating from the physiological stress of the patient's kidney stone plus minus an associated infection Review of Systems Review of Systems: Mild distress and fatigue no headache, blurry or double vision no speech or swallowing issues no chest pain, pressure or palpitations patient cannot sense any palpitations associate with his rapid rate noticing of chest pain associate with a rapid rate no shortness of breath, cough or wheezes no abdominal pain, has had nausea with some vomiting no dysuria, hematuria or frequency no focal joint pain or swelling Left CVA angle tenderness no bruising, bleeding or rashes no focal signs of weakness or numbness or altered sensation no complaints of anxiety or depression. Physical Exam Physical Exam: The patient appeared well nourished and normally developed. Vital signs as documented. Head exam is normocephalic atraumatic no scleral icterus Neck is without JVD, thyromegaly, or carotid bruits. Lungs are clear to auscultation, no focal loss of breath sounds Cardiac exam, Rhythm is regular.. No murmurs, rubs or gallops. Abdominal exam reveals normal bowel sounds, soft left sided tenderness Extremities are nonedematous and both pedal pulses are present Neurologic exam is alert and oriented, no focal loss of strength or sensation Skin is without bruises or rashes Psychologically is without concerns for anxiety or depression. Results & Data Results & Data ([facility]) Vital Signs (Past 12 Hours) Vital Signs Temp Pulse Pulse Resp BP BP Pulse Ox 06/14/20 07:00 98.1 F 100 H 18 143/91 H 94 06/14/20 02:34 100 H 06/14/20 02:12 149/95 H 06/14/20 01:50 97.7 F 84 16 163/107 H 93 06/14/20 01:12 87 18 161/114 H 97 06/14/20 00:45 90 18 162/115 H 96 10/07/20 23:41 84 18 153/104 H 97 06/13/20 23:04 88 L 06/13/20 21:27 74 18 137/100 93 06/13/20 20:29 98.8 F 87 18 166/100 H 96 PG Care Time/CCT Total # of Minutes Spent Total Time Spent with Patient: Total time spent is greater than 50% in coordination of care (as documented) at patient's floor/unit and/or counseling patient: Coding Level of Care Code 66753 Subseq Hosp Care Lvl 3 Diagnoses Atrial fibrillation I48.91 Calculus of distal left ureter N20.1 Hydronephrosis of left kidney N13.30 Hyperlipidemia E78.5 Hypertension I10 GERD (gastroesophageal reflux disease) K21.9
[2020-06-14] MEDS ORDERED: KETOROLAC TROMETHAMINE 15 MG/ML VIAL IV PRN (07:34)
[2020-06-14] MEDS ORDERED: HYDROmorphone INJ 0.5 MG/0.5 ML SYR IV PRN (07:35)
--- NOTE | 2020-06-14 07:36 | CT Scan Report ---
ABDOMEN AND PELVIS CT WITHOUT CONTRAST CT DOSE: 437.29 mGy.cm HISTORY: Acute left-sided flank pain l flank pain TECHNIQUE: Multiaxial CT images of the abdomen and pelvis were performed without contrast. A dose lo wering technique was utilized adhering to the principles of ALARA. COMPARISON STUDY: CT abdomen pelvis 10/16/2016 FINDINGS: Clear lung bases. No pneumatosis or pneumoperitoneum. The imaged inferior cardiac chambers are unremarkable. The unenhanced spleen, pancreas, adrenal glands, gallbladder and liver appear unrem arkable. Normal right kidney. Nonobstructing 4 mm calculus of the inferior pole left kidney. Cortical scarring and parenchymal thinning of the posterolateral inferior pole and interpolar left kidney. Pr obable punctate calculus of the interpolar left kidney. Interpolar left renal cyst, 3.7 cm. Moderate left-sided hydroureteronephrosis secondary to an obstructing 8 x 6 x 6 mm calculus of the distal left ureter approximately 6 mm proximal to the ureterovesicular junction. Decompressed urinary bladder. M ild prostamegaly. Calcified plaque of the abdominal aorta without aneurysm. No adenopathy. Mild to moderate gastric distention suggestive of recent meal. No bowel obstruction. Normal appendix. Soft tissues are unremarkable. Indeterminate lucent lesion with peripheral sclerosis involves the ri ght iliac bone, 2.2 cm. This is unchanged from the 2017 exam suggestive of benign etiology. Remote le ft-sided L5 pars defect. No spondylolisthesis. IMPRESSION: 1. Moderate left-sided hydroureteronephrosis secondary to an obstructing 8 x 6 x 6 mm calculus of the distal left ureter approximately 6 mm proximal to the ureterovesicular junction. 2. Nonobstructing left nephrolithiasis. 3. No bowel obstruction or bowel wall thickening. Normal appendix. 4. Remote left-sided L5 pars defects without spondylolisthesis. ACT 112: Negative or not required by law. The above report was generated using voice recognition software. It may contain grammatical, syntax o r spelling errors. Electronically signed by: Oswald Parekh M.D. 06/14/2020 7:35 AM
[2020-06-14] MEDS: SODIUM CHLORIDE 0.9% 1000ML 1,000 ML IV SCH ×3 (07:46→20:00)
[2020-06-14 08:11] LABS: Basophils # (auto) 0.01 K/uL (0-0.2); Basophils % (auto) 0.1 %; Hematocrit (blood only) 45.1 % (42-52); Hemoglobin 15.1 g/dL (14.0-18.0); Immature Granulocytes # (auto) 0.02 K/uL (0.00-0.02); Immature Granulocytes % (auto) 0.1 %; Lymphocytes # (auto) 0.81 K/uL (1.2-3.4); Mean Corpuscular Hgb Conc 33.5 g/dL (32-36); Mean Corpuscular Volume 89.5 fL (80-100); Monocytes # (auto) 1.18 K/uL (0.11-0.59); Monocytes % (auto) 7.3 %; Neutrophils # (auto) 14.12 K/uL (1.4-6.5); Neutrophils % (auto) 87.5 %; Platelet Count 249 K/uL (130-400); RDW Coefficient of Variation 13.3 % (11.5-14.5); RDW Standard Deviation 43.2 fL (36.4-46.3); Red Blood Count 5.04 M/uL (4.7-6.1); White Blood Count 16.14 K/uL (4.8-10.8)
[2020-06-14 08:21] LABS: Prothrombin Time 10.9 Seconds (9.0-12.0)
[2020-06-14 08:39] LABS: Albumin Level 3.5 gm/dl (3.4-5.0); BUN Creatinine Ratio 11.8 (10-20); Calcium 8.6 mg/dl (8.5-10.1); Creatinine Clr Calc Pharmacy 56.4 ml/min; Est GFR (African American) 57.7; Est GFR (Non-African American) 49.8; Potassium 4.2 mmol/L (3.5-5.1)
[2020-06-14 08:42] LABS: Albumin Globulin Ratio 1.1 (0.9-2); Bilirubin,Total 1.4 mg/dl (0.2-1); Globulin 3.3 gm/dl (2.5-4.0); Total Protein 6.8 gm/dl (6.4-8.2)
--- NOTE | 2020-06-14 08:47 | Urology Consultation ---
Date of Consultation June 14, 2020 Assessment & Plan (1) Calculus of distal left ureter: Assessment Distal left ureteral calculus with associated renal colic Discussed options with patient today including #1 trial of passage with medical expulsive therapy-this is unlikely to work due to the size of the stone #2 proceed to the OR for a cystoscopy ureteroscopy laser lithotripsy and stent #3 extracorporal shockwave lithotripsy machine will only be here on Fridays Patient has had ureteroscopy in the past and would like to proceed with that. Procedure was described to him in detail including the risks and benefits as per the consent All of his questions were answered he agrees to proceed History of Present Illness Attending Physician: Cisco Somers MD History of Present Illness Patient is a 60-year-old white male who was admitted through the emergency room with left flank pain left lower quadrant abdominal pain. He has a history of nephrolithiasis having a stone removed several years ago. This was done in [place]. He had a CT scan done which I reviewed this shows a 7 mm stone at the left ureterovesical junction with proximal hydroureteronephrosis he also has a stone in the left kidney. Currently his pain is controlled with pain medications He has had no fevers or chills He has no signs of sepsis Said he has been voiding more frequently than normal this is probably from the stone irritating the bladder Allergies Allergy/AdvReac Type Severity Reaction Status Date / Time No Known Drug Allergies Allergy Unknown . Verified 06/11/20 11:38 Home Medications Home Medications Medication Instructions Recorded Confirmed Type atorvastatin 10 mg tablet 10 mg PO DAILY 06/11/20 06/13/20 History pantoprazole 40 mg tablet,delayed 40 mg PO DAILY #30 tab 06/11/20 06/13/20 Rx release valsartan 40 mg tablet 40 mg PO DAILY tab 06/11/20 06/13/20 History psyllium seed (sugar) oral powder 1 tbsp PO DAILY #1254 g 06/12/20 06/13/20 Rx polyethylene glycol 3350 [Miralax] 17 g PO DAILY PRN 06/13/20 06/13/20 History simethicone [Gas-X] 80 mg PO BID PRN 06/13/20 06/13/20 History Patient History Medical History (Updated 06/14/20 @ 03:58 by Dashawn Mart MD) GERD (gastroesophageal reflux disease) Hyperlipidemia Hypertension Social History Smoking Status: Former smoker Tobacco Type: Cigarettes Smoking End Date: 10 years ago; Hx Alcohol Use: Yes Hx Substance Use: No Preferred Language: Polish Communication Ability: Effective Beliefs That Will Affect Care: None Current Living Situation: Spouse Other Information That Helps Us Care for You: No Feels Safe at Home: Yes Review of Systems Review of Systems: The patient denies chest pain, palpitations, shortness of breath, dyspnea on exertion, cough, lower extremity swelling, sore throat, fevers, chills, sweats, vomiting, diarrhea , constipation, blood in urine or stool, dysuria, urinary frequency or urgency, lightheadedness, dizziness, headache, memory loss, loss of consciousness, rash, abnormal bruising or bleeding, imbalance, focal or generalized weakness, numbness or tingling in arms or legs, generalized arthralgias or myalgias, neck pain, or night sweats. Physical Exam Physical Exam: CONSTITUTIONAL well developed/well-nourished male in no acute distress NEURO/PSYCH alert and oriented Normal mood and affect Normal coordination SKIN Normal color and turgor No rashes NECK Visual inspection normal PULMONARY Lungs are clear to auscultation Normal rhythm and effort No use of accessory muscles CARDIAC Regular rate and rhythm No murmurs No peripheral edema ABDOMEN Soft nontender No masses No hepatosplenomegaly Results & Data ([facility]) Vital Signs (Past 12 Hours) Vital Signs Temp Pulse Pulse Resp BP Pulse Ox 06/14/20 07:00 36.7 C 100 H 18 143/91 H 94 06/14/20 02:34 100 H 06/14/20 02:12 149/95 H 06/14/20 01:50 36.5 C 84 16 163/107 H 93 06/14/20 01:12 87 18 161/114 H 97 06/14/20 00:45 90 18 162/115 H 96 06/13/20 23:41 84 18 153/104 H 97 06/13/20 23:04 88 L 06/13/20 21:27 74 18 137/100 93 Laboratory Results Laboratory Results - last 24 hr 06/13/20 06/13/20 06/14/20 20:54 20:54 00:16 WBC 10.38 RBC 5.44 Hgb 15.9 Hct 48.2 MCV 88.6 MCH 29.2 MCHC 33.0 RDW Std Deviation 42.4 RDW Coeff of Royal 13.1 Plt Count 306 MPV 9.1 Immature Gran % (Auto) 0.3 Neut % (Auto) 51.6 Lymph % (Auto) 35.5 [place] % (Auto) 9.9 Eos % (Auto) 2.4 Baso % (Auto) 0.3 Neut # (Auto) 5.35 Lymph # (Auto) 3.69 H [place] # (Auto) 1.03 H Eos # (Auto) 0.25 Baso # (Auto) 0.03 Immature Gran # (Auto) 0.03 H PT INR Sodium 140 Potassium 3.7 Chloride 109 H Carbon Dioxide 25 Anion Gap 6.0 BUN 17 Creatinine 1.14 Est Cr Clr Drug Dosing 74.7 Est GFR ( Amer) 81.7 Est GFR (Non-Af Amer) 70.5 BUN/Creatinine Ratio 14.8 Glucose 123 H Calcium 9.0 Total Bilirubin 1.6 H AST 23 ALT 32 Alkaline Phosphatase 83 Total Protein 6.9 Albumin 3.9 Globulin 3.0 Albumin/Globulin Ratio 1.3 Lipase 90 Urine Color Dark Yellow Urine Appearance Clear Urine pH 5.0 Ur Specific [place] 1.032 H Urine Protein Trace H Urine Glucose (UA) Negative Urine Ketones Negative Urine Blood 2+ H Urine Nitrite Negative Urine Bilirubin Negative Urine Urobilinogen Negative Ur Leukocyte Esterase Negative Urine WBC (Auto) 1-5 Urine RBC (Auto) 10-30 H U Hyaline Cast (Auto) 1-5 U Epithel Cells (Auto) 5-10 H Urine Bacteria (Auto) Negative 06/14/20 06/14/20 06/14/20 07:49 07:49 07:49 WBC 16.14 H RBC 5.04 Hgb 15.1 Hct 45.1 MCV 89.5 MCH 30.0 MCHC 33.5 RDW Std Deviation 43.2 RDW Coeff of [place] 13.3 Plt Count 249 MPV 9.0 Immature Gran % (Auto) 0.1 Neut % (Auto) 87.5 Lymph % (Auto) 5.0 [place] % (Auto) 7.3 Eos % (Auto) 0.0 Baso % (Auto) 0.1 Neut # (Auto) 14.12 H Lymph # (Auto) 0.81 L [place] # (Auto) 1.18 H Eos # (Auto) 0.00 Baso # (Auto) 0.01 Immature Gran # (Auto) 0.02 PT 10.9 INR 1.0 Sodium 139 Potassium 4.2 Chloride 109 H Carbon Dioxide 23 Anion Gap 7.0 BUN 18 Creatinine 1.52 H D Est Cr Clr Drug Dosing 56.4 Est GFR ( Amer) 57.7 Est GFR (Non-Af Amer) 49.8 BUN/Creatinine Ratio 11.8 Glucose 134 H Calcium 8.6 Total Bilirubin 1.4 H AST 21 ALT 28 Alkaline Phosphatase 82 Total Protein 6.8 Albumin 3.5 Globulin 3.3 Albumin/Globulin Ratio 1.1 Lipase Urine Color Urine Appearance Urine pH Ur Specific [place] Urine Protein Urine Glucose (UA) Urine Ketones Urine Blood Urine Nitrite Urine Bilirubin Urine Urobilinogen Ur Leukocyte Esterase Urine WBC (Auto) Urine RBC (Auto) U Hyaline Cast (Auto) U Epithel Cells (Auto) Urine Bacteria (Auto) PG Care Time/CCT Total # of Minutes Spent Total Time Spent with Patient: Total time spent is greater than 50% in coordination of care (as documented) at patient's floor/unit and/or counseling patient: Coding Level of Care Code 97801 Office/OBS Consult Lvl 3 Diagnoses Calculus of distal left ureter N20.1
[2020-06-14] MEDS ORDERED: MAGNESIUM SULFATE / D5W 1 GM/100 ML BAG IV ONE (10:45)
[2020-06-14] MEDS: TAMSULOSIN HCL 0.4 MG CAP PO SCH (11:02)
[2020-06-14] MEDS ORDERED: METOPROLOL TARTRATE 25 MG TAB PO ONE (12:00)
--- NOTE | 2020-06-14 15:00 | Anesthesiology Consultation ---
Date of Service June 14, 2020 Assessment & Plan Chart Review Chart Review: Acceptable Risk for Surgery Consults Requested none History Surgery Operation Date: 06/14/20 16:15 Proposed Procedures p Cystoscopy, Ureteroscopy, Left Stent Placement, Laser Lithotripsy - Shola Sexton DO Height/Weight Height: 5 ft 8 in Weight: 85.5 kg Allergies Allergy/AdvReac Type Severity Reaction Status Date / Time No Known Drug Allergies Allergy Unknown . Verified 06/11/20 11:38 Medications Home Medications Medication Instructions Recorded Confirmed Last Taken atorvastatin 10 mg tablet 10 mg PO DAILY 06/11/20 06/13/20 Unknown pantoprazole 40 mg tablet,delayed 40 mg PO DAILY #30 tab 06/11/20 06/13/20 Unknown release valsartan 40 mg tablet 40 mg PO DAILY tab 06/11/20 06/13/20 Unknown psyllium seed (sugar) oral powder 1 tbsp PO DAILY #1254 g 06/12/20 06/13/20 Unknown polyethylene glycol 3350 [Miralax] 17 g PO DAILY PRN 06/13/20 06/13/20 Unknown simethicone [Gas-X] 80 mg PO BID PRN 06/13/20 06/13/20 Unknown Active Medications Generic Name Dose Route Start Last Admin Trade Name Freq PRN Reason Stop Dose Admin Hydromorphone HCl 1 mg 06/14/20 01:44 06/14/20 05:41 Hydromorphone Inj 1 Mg/Ml Syringe IV 06/28/20 01:43 1 mg Q3H PRN Administration Severe Pain Ceftriaxone Sodium 2,000 mg/ 70 mls @ 100 mls/hr 06/14/20 04:00 06/14/20 04:57 Dextrose IV 06/24/20 03:59 Infused Q24H CLEO Infusion Protocol Famotidine 20 mg/ Syringe 5 mls @ 2.5 mls/min 06/14/20 06:00 06/14/20 05:25 IV 07/14/20 05:59 2.5 mls/min Q12H CLEO Administration Sodium Chloride 1,000 mls @ 200 mls/hr 06/14/20 07:45 06/14/20 12:27 Nss 1000ml IV 07/14/20 07:44 200 mls/hr .Q5H CLEO Administration Ketorolac Tromethamine 15 mg 06/14/20 07:34 06/14/20 07:48 Ketorolac Tromethamine 15 Mg/Ml Vial IV 06/19/20 07:33 15 mg Q6H PRN Administration Pain Metoprolol Tartrate 5 mg 06/14/20 01:44 06/14/20 10:26 Metoprolol Tartrate 1 Mg/Ml Vial IV 07/14/20 01:43 5 mg Q4 PRN Administration Blood Pressure - High Ondansetron HCl 4 mg 06/14/20 01:44 06/14/20 07:46 Ondansetron Inj 2 Mg/Ml 2 Ml Vial IV 07/14/20 01:43 4 mg Q6H PRN Administration Nausea Tamsulosin HCl 0.4 mg 06/14/20 09:00 06/14/20 11:02 Tamsulosin Hcl 0.4 Mg Cap PO 07/14/20 08:59 0.4 mg QAM CLEO Administration Past Medical History Medical History GERD (gastroesophageal reflux disease) Hyperlipidemia Hypertension Social History Smoking Status: Former smoker Smoking End Date: 10 years ago Hx Alcohol Use: Yes alcohol intake frequency: a few times a week Hx Substance Use: No Physical Exam Vital Signs Last Vital Signs Temp 37.3 C 06/14/20 11:39 Pulse 99 H 06/14/20 11:39 Resp 18 06/14/20 11:39 BP 144/86 H 06/14/20 11:39 Pulse Ox 97 06/14/20 11:39 Testing Laboratory Results 06/14/20 07:49 06/14/20 07:49 PT 10.9 Seconds (9.0-12.0) 06/14/20 07:49 INR 1.0 (0.9-1.1) 06/14/20 07:49 Urine Color Dark Yellow 06/14/20 00:16 Urine Appearance Clear (Clear) 06/14/20 00:16 Urine pH 5.0 (4.5-7.5) 06/14/20 00:16 Ur Specific [place] 1.032 (1.000-1.030) H 06/14/20 00:16 Urine Protein Trace (Negative) H 06/14/20 00:16 Urine Glucose (UA) Negative (Negative) 06/14/20 00:16 Urine Ketones Negative (Negative) 06/14/20 00:16 Urine Nitrite Negative (Negative) 06/14/20 00:16 Ur Leukocyte Esterase Negative (Negative) 06/14/20 00:16 Urine WBC (Auto) 1-5 /hpf (0-5) 06/14/20 00:16 Urine RBC (Auto) 10-30 /hpf (0-4) H 06/14/20 00:16 U Hyaline Cast (Auto) 1-5 /lpf (0-5) 06/14/20 00:16 U Epithel Cells (Auto) 5-10 /lpf (0-5) H 06/14/20 00:16 Urine Bacteria (Auto) Negative (Negative) 06/14/20 00:16
[2020-06-14] MEDS ORDERED: MIDAZOLAM HCL 1 MG/ML 2ML VIAL ONE (15:42)
[2020-06-14] MEDS ORDERED: ONDANSETRON INJ 2 MG/ML 2 ML VIAL ONE (15:42)
[2020-06-14] MEDS ORDERED: PHENYLEPHRINE 100MCG/ML 5ML SYR ONE (15:42)
[2020-06-14] MEDS ORDERED: PROPOFOL IV EMULSION 10 MG/ML 20 ML VIAL IV ONE (15:42)
[2020-06-14] MEDS ORDERED: ePHEDrine sulfate 50 MG/ML SYR ONE (15:42)
[2020-06-14] MEDS ORDERED: LIDOCAINE HCL 2% 2 ML VIAL/AMP(20MG/ML) INFIL ONE (15:42)
[2020-06-14] MEDS ORDERED: fentaNYL citrate 100 MCG/2 ML VIAL ONE ×2 (15:43→17:52)
--- NOTE | 2020-06-14 16:18 | XCELERA ---
[id number]
[2020-06-14] MEDS ORDERED: ATROPINE SULFATE 0.1 MG/ML 10ML SYR IV PRN (17:28)
[2020-06-14] MEDS ORDERED: HYDROmorphone INJ 2 MG/ML SYR/VIAL IV PRN (17:28)
[2020-06-14] MEDS ORDERED: METOCLOPRAMIDE HCL INJ 5 MG/ML 2 ML VIAL IV PRN (17:28)
[2020-06-14] MEDS ORDERED: PROMETHAZINE HCL 12.5 MG in SODIUM CHLORIDE 0.9% 50 ML IV PRN (17:28)
[2020-06-14] MEDS ORDERED: fentaNYL citrate 100 MCG/2 ML VIAL IV PRN (17:28)
[2020-06-14] MEDS ORDERED: ePHEDrine sulfate 50 MG/ML AMP IV PRN (17:28)
[2020-06-14] MEDS ORDERED: METOPROLOL TARTRATE 1 MG/ML VIAL IV ONE (17:45)
--- NOTE | 2020-06-14 17:54 | Electrocardiogram Report ---
Test Reason : Blood Pressure : / mmHG Vent. Rate : 092 BPM Atrial Rate : 117 BPM P-R Int : 000 ms QRS Dur : 086 ms QT Int : 352 ms P-R-T Axes : 000 078 071 degrees QTc Int : 435 ms Atrial fibrillation Abnormal ECG No previous ECGs available Confirmed by Sterling Rm ([id number]) on 06/14/2020 5:54:00 PM Referred By: REFERRED SELF Confirmed By:Mookie Rm
--- NOTE | 2020-06-14 18:10 | Operative Report ---
PG Post Operative Report Pre & Post Diagnosis Operation Date: 06/14/20 16:15 Pre-Op Diagnosis: Left Ureteral Stone Post-Op Diagnosis: Left Ureteral Stone I identified the patient and participated in the time-out.: Yes Procedure Operation Date: 06/14/20 16:15 Actual Procedures p Cystoscopy, Ureteroscopy, Left Stent Placement, Laser Lithotripsy(Not Appl icable) - Shola Sexton DO Surgeon Sterling Sahu MD Milking System Installer none Estimated Blood Loss 1 Findings Consistent with Post-Op Diagnosis Specimens Stone for chemical analysis Description of Procedure The patient was identified in the preoperative holding area, appropriate informed consents were reviewed and completed and the patient was transferred to the operative suite. Upon arrival, appropriate antibiotics and anesthesia were administered and the patient was placed in dorsal lithotomy position and prepped and draped in sterile fashion. To begin the case we passed a 22 [place] cystoscope with 30 degree lens. Inspection revealed a healthy-appearing urethra and relatively small prostate. Inspection of the bladder revealed ureteral orifices to be in orthotopic position. There was slight dilation of the distal left ureter consistent with a very mild Hutch diverticulum. This was not super pronounced but relatively subtle, but certainly different from his right side. I was able to find the true UO and cannulated with a sensor wire. I then removed the cystoscope and reentered with a semirigid ureteroscope. I guided it alongside the wire into the distal left ureter and encountered a calculus impacted approximately 1 cm above the UO. I passed a 365 m laser fiber and I treated this stone entirely. I then irrigated all of the stone debris out of the ureter and advance the scope maximally confirming that I saw no other retained fragments. The ureter appeared to be quite healthy and I placed a 6 Liberian by 26 cm stent seeing a good curl in the kidney as well as the bladder. I emptied the bladder and concluded the case. I did collect stone fragments and passed them off the table for chemical analysis. The patient was subsequently extubated and taken to the PACU in stable condition. There were no complications. I attest to the content of the Intraoperative Record and any orders documented therein. Any exceptions are noted below.
--- NOTE | 2020-06-14 18:14 | Urology Progress Note ---
Date of Service June 14, 2020 Assessment & Plan (1) Calculus of distal left ureter: Tolerated surgery very well I have added his discharge instructions as they pertain to his use stent and follow-up with urology I also sent discharge medications to his pharmacy Presuming he progresses appropriately from a general health standpoint he should be stable for discharge home tomorrow morning Admission and Anticipated Discharge Date Admission Date: June 14, 2020 Subjective Tolerated cystoscopy, left ureteroscopy and laser lithotripsy very well Fortunately he returned to sinus rhythm in the midst of the case Results & Data ([facility]) Vital Signs (Past 12 Hours) Vital Signs Temp Pulse Pulse Resp BP BP Pulse Ox 06/14/20 17:10 37.5 C 98 H 18 123/75 96 06/14/20 16:00 37.1 C 90 18 117/84 97 06/14/20 15:54 132 H 06/14/20 11:39 37.3 C 99 H 18 144/86 H 97 06/14/20 10:26 132 H 129/93 06/14/20 08:00 91 H 06/14/20 07:00 36.7 C 100 H 18 143/91 H 94 PG Care Time/CCT Total # of Minutes Spent Total Time Spent with Patient: Total time spent is greater than 50% in coordination of care (as documented) at patient's floor/unit and/or counseling patient: Coding Level of Care Code None Diagnoses Calculus of distal left ureter N20.1
--- NOTE | 2020-06-14 18:52 | Fluoroscopy Report ---
FL retrograde includes kub CLINICAL HISTORY: RETROGRADE COMPARISON STUDY: CT of the abdomen and pelvis June 13, 2020. FLUOROSCOPY TIME: 5 seconds. FLUOROSCOPIC IMAGES: 2 FINDINGS: Fluoroscopy was provided during left retrograde exam with ureteral stent insertion. A densi ty projecting over the left renal pelvis. This could reflect a urinary calculus. IMPRESSION: Fluoroscopy provided during left retrograde exam with ureteral stent insertion. ACT 112: Negative or not required by law. Electronically signed by: Justin Lim M.D. 06/14/2020 6:51 PM
--- NOTE | 2020-06-14 19:05 | Anesthesiology Progress Note ---
Date of Service June 14, 2020 Anesthesia Post Procedure Vital Signs Vital Signs: Temp Pulse Pulse Pulse Resp BP BP 06/14/20 18:50 119 H 22 144/89 H 06/14/20 18:25 98 H 20 118/81 06/14/20 18:15 92 H 16 110/76 06/14/20 18:08 36.6 C 84 14 110/81 06/14/20 17:10 37.5 C 98 H 18 123/75 06/14/20 16:00 37.1 C 90 18 117/84 06/14/20 15:54 132 H 06/14/20 11:39 37.3 C 99 H 18 144/86 H 06/14/20 10:26 132 H 129/93 06/14/20 08:00 91 H 06/14/20 07:00 36.7 C 100 H 18 143/91 H 06/14/20 02:34 100 H 06/14/20 02:12 149/95 H 06/14/20 01:50 36.5 C 84 16 163/107 H 06/14/20 01:12 87 18 161/114 H 06/14/20 00:45 90 18 162/115 H 06/13/20 23:41 84 18 153/104 H 06/13/20 23:04 06/13/20 21:27 74 18 137/100 06/13/20 20:29 37.1 C 87 18 166/100 H Pulse Ox 06/14/20 18:50 95 06/14/20 18:25 95 06/14/20 18:15 98 06/14/20 18:08 94 06/14/20 17:10 96 06/14/20 16:00 97 06/14/20 15:54 06/14/20 11:39 97 06/14/20 10:26 06/14/20 08:00 06/14/20 07:00 94 06/14/20 02:34 06/14/20 02:12 06/14/20 01:50 93 06/14/20 01:12 97 06/14/20 00:45 96 06/13/20 23:41 97 06/13/20 23:04 88 L 06/13/20 21:27 93 06/13/20 20:29 96 Pain Intensity Left Flank: Pain Intensity: 4 Transfer of Care Handoff Completed per policy Notes Mental Status: alert / awake / arousable Patient Amnestic to Procedure: Yes Nausea / Vomiting: adequately controlled Pain: adequately controlled Airway Patency, RR, SpO2: stable & adequate BP & HR: stable & adequate Hydration State: stable & adequate Anesthetic Complications: no major complications apparent
--- NOTE | 2020-06-14 19:16 | Anesthesiology Progress Note ---
Date of Service June 14, 2020 Anesthesia Post Procedure Vital Signs Vital Signs: Temp Pulse Pulse Pulse Resp BP BP 06/14/20 19:00 113 H 16 149/86 H 06/14/20 18:50 119 H 22 144/89 H 06/14/20 18:25 98 H 20 118/81 06/14/20 18:15 92 H 16 110/76 06/14/20 18:08 36.6 C 84 14 110/81 06/14/20 17:10 37.5 C 98 H 18 123/75 06/14/20 16:00 37.1 C 90 18 117/84 06/14/20 15:54 132 H 06/14/20 11:39 37.3 C 99 H 18 144/86 H 06/14/20 10:26 132 H 129/93 06/14/20 08:00 91 H 06/14/20 07:00 36.7 C 100 H 18 143/91 H 06/14/20 02:34 100 H 06/14/20 02:12 149/95 H 06/14/20 01:50 36.5 C 84 16 163/107 H 06/14/20 01:12 87 18 161/114 H 06/14/20 00:45 90 18 162/115 H 06/13/20 23:41 84 18 153/104 H 06/13/20 23:04 06/13/20 21:27 74 18 137/100 06/13/20 20:29 37.1 C 87 18 166/100 H Pulse Ox 06/14/20 19:00 95 06/14/20 18:50 95 06/14/20 18:25 95 06/14/20 18:15 98 06/14/20 18:08 94 06/14/20 17:10 96 06/14/20 16:00 97 06/14/20 15:54 06/14/20 11:39 97 06/14/20 10:26 06/14/20 08:00 06/14/20 07:00 94 06/14/20 02:34 06/14/20 02:12 06/14/20 01:50 93 06/14/20 01:12 97 06/14/20 00:45 96 06/13/20 23:41 97 06/13/20 23:04 88 L 06/13/20 21:27 93 06/13/20 20:29 96 Pain Intensity Left Flank: Pain Intensity: 4 Transfer of Care Handoff Completed per policy Notes Mental Status: alert / awake / arousable and participated in evaluation Patient Amnestic to Procedure: Yes Nausea / Vomiting: adequately controlled Pain: adequately controlled Airway Patency, RR, SpO2: stable & adequate BP & HR: stable & adequate Hydration State: stable & adequate Anesthetic Complications: no major complications apparent
--- NOTE | 2020-06-14 19:35 | Anesthesiology Progress Note ---
Date of Service June 14, 2020 Anesthesia Post Procedure Vital Signs Vital Signs: Temp Pulse Pulse Pulse Resp BP BP 06/14/20 19:30 37.3 C 104 H 18 133/84 06/14/20 19:20 106 H 20 139/90 06/14/20 19:10 107 H 16 147/85 H 06/14/20 19:00 113 H 16 149/86 H 06/14/20 18:50 119 H 22 144/89 H 06/14/20 18:25 98 H 20 118/81 06/14/20 18:15 92 H 16 110/76 06/14/20 18:08 36.6 C 84 14 110/81 06/14/20 17:10 37.5 C 98 H 18 123/75 06/14/20 16:00 37.1 C 90 18 117/84 06/14/20 15:54 132 H 06/14/20 11:39 37.3 C 99 H 18 144/86 H 06/14/20 10:26 132 H 129/93 06/14/20 08:00 91 H 06/14/20 07:00 36.7 C 100 H 18 143/91 H 06/14/20 02:34 100 H 06/14/20 02:12 149/95 H 06/14/20 01:50 36.5 C 84 16 163/107 H 06/14/20 01:12 87 18 161/114 H 06/14/20 00:45 90 18 162/115 H 06/13/20 23:41 84 18 153/104 H 06/13/20 23:04 06/13/20 21:27 74 18 137/100 06/13/20 20:29 37.1 C 87 18 166/100 H Pulse Ox 06/14/20 19:30 94 06/14/20 19:20 95 06/14/20 19:10 92 06/14/20 19:00 95 06/14/20 18:50 95 06/14/20 18:25 95 06/14/20 18:15 98 06/14/20 18:08 94 06/14/20 17:10 96 06/14/20 16:00 97 06/14/20 15:54 06/14/20 11:39 97 06/14/20 10:26 06/14/20 08:00 06/14/20 07:00 94 06/14/20 02:34 06/14/20 02:12 06/14/20 01:50 93 06/14/20 01:12 97 06/14/20 00:45 96 06/13/20 23:41 97 06/13/20 23:04 88 L 06/13/20 21:27 93 06/13/20 20:29 96 Pain Intensity Left Flank: Pain Intensity: 4 Transfer of Care Handoff Completed per policy Notes Mental Status: alert / awake / arousable, participated in evaluation and see notes below (Pt had extreme confusion and disorientation after arriving in PACU. He was agitated, incoherent trying to climb out of bed. It was neccesary for staff and myself to restrain pt for his safety. Mental status gradually improved and at this time he is calm, cooperative and oriented x 3. ) Patient Amnestic to Procedure: Yes Nausea / Vomiting: adequately controlled Pain: adequately controlled Airway Patency, RR, SpO2: stable & adequate BP & HR: stable & adequate Hydration State: stable & adequate Anesthetic Complications: no major complications apparent
[2020-06-14] MEDS: METOPROLOL TARTRATE 25 MG TAB PO SCH (20:01)
[2020-06-15] MEDS: SODIUM CHLORIDE 0.9% 1000ML 1,000 ML IV SCH ×3 (00:09→17:35)
[2020-06-15] MEDS ORDERED: LORazepam 2 MG/4 ML VIAL IV STA ×2 (01:01→01:24)
[2020-06-15] MEDS ORDERED: LORazepam 2 MG/4 ML VIAL ONE ×2 (01:05→04:53)
[2020-06-15] MEDS: cefTRIAXone SODIUM 2,000 MG in DEXTROSE 5% 50 ML IV SCH (04:13)
[2020-06-15] MEDS ORDERED: HALOPERIDOL LACTATE 5 MG/ML 1 ML VIAL ONE ×2 (04:22→04:27)
[2020-06-15] MEDS ORDERED: HALOPERIDOL LACTATE 5 MG/ML 1 ML VIAL IM STA ×3 (04:30→05:00)
[2020-06-15] MEDS ORDERED: LORazepam 1 MG/2 ML VIAL IV STA (05:00)
[2020-06-15] MEDS: FAMOTIDINE 20 MG in SYRINGE 3 ML IV SCH (05:09)
--- NOTE | 2020-06-15 05:23 | Communication Note ---
Date of Service: June 15, 2020 I was called to evaluate Mr. Allison around 12:30 am because he had been somewhat confused following anesthesia and was requesting to the nurse to go robby e. I had calm discussion with patient in which he was delirious but re- directable and he was agreeable to stay til morning. He became more and more agitated as the night went on and patient was demanding to leave. Started to raise his voice and stand up and was quite unsteady on his feet. Discussed case with his and him and he was agreeable to try to sleep but felt he was too agitated to possibly stand sitting still. He was amenable to getting ativan for his agitation which we gave at that time. He then became even more agitated and aggressive and we gave two more mg of ativan and he was amenable to remaining in bed until morning. Around 4:15 patient got out of bed and had fallen to his knees. He did not hit his head or appear to have any significant injury but patient then became incredibly agitated and violent. He was thrashing around throwing punches and kicking while screaming confusedly and threatening with profanities and that he would kill staff. He had to be physically restrained at this time as I felt he was a clear danger to himself and our staff. Pepper Mauricio was called at 4:20 I ordered 5 mg of haldol which was immediately administered IM, this did not sedate him at all and about 10 minutes later I gave a further 5 mg of haldol and he started to slow down, but then he became hostile again swinging wildly at patients and almost overwhelming all six of us as we atte mpted to physically restrain him. At this point I ordered for hard physical restraints to be ordered and placed because he was a clear danger to himself and others and I could see no other way to emergently prevent this. I gave 1 further mg of ativan at this time and 5 more mg of haldol. In total patient received 5 mg of ativan and 15 mg of haldol. He continued to resist against the hard restraints, but finally has settled down. He did become slightly hypoxic and is now on 2 L NC saturating in the 90's. Have been in continuous contact with his , Meli as she wished to be kept abreast of the situation, she is concerned but agreeable to both restraints and chemical sedation and will be in first thing in the morning to see patient.
--- NOTE | 2020-06-15 08:54 | CT Scan Report ---
CT head/brain wo con CLINICAL HISTORY: altered mentation COMPARISON STUDY: No previous studies for comparison. TECHNIQUE: Axial CT of the brain is performed from the vertex to the skull base. IV contrast was not administered for this examination. A dose lowering technique was utilized adhering to the principles of ALARA. CT DOSE: 1228.53 mGy.cm FINDINGS: No intra or extra-axial mass lesions are visualized. There is no CT evidence of acute cortical infarc tion. There is no evidence of midline shift. There is no acute hemorrhage. No calvarial fractures ar e visualized. The examination is significantly compromised due to motion artifact. There is no evidence of pathologic ventricular dilatation. There is no evidence of acute sinusitis IMPRESSION: 1. Significantly motion degraded examination. 2. No acute intracranial findings given the technical limitations of the study ACT 112: Negative or not required by law. Electronically signed by: Garth Adam M.D. 06/15/2020 8:53 AM
[2020-06-15] MEDS ORDERED: HALOPERIDOL LACTATE 5 MG/ML 1 ML VIAL IV PRN (09:07)
--- NOTE | 2020-06-15 09:39 | Urology Progress Note ---
Date of Service June 15, 2020 Assessment & Plan (1) Nephrolithiasis: Assessment #1 nephrolithiasis Stop day 1 from ureteroscopy laser lithotripsy stent placement on the left Acute psychiatric decompensation last night-this is being worked up by the hospitalist No further urologic intervention planned Admission and Anticipated Discharge Date Admission Date: June 14, 2020 Subjective Postop day 1 from cystoscopy ureteroscopy laser litho-stent placement on left for a distal ureteral calculus. Events of last night noted. Patient is going to get a CT of his head Unable to speak with patient as he is very sedated He is afebrile vital signs are stable except he is a little bit tachycardic His is there with him she is obviously upset about his current mental condition Urine output has been good Results & Data ([facility]) Vital Signs (Past 12 Hours) Vital Signs Temp Pulse Pulse Pulse Resp BP BP 06/15/20 07:48 111 H 20 113/67 06/14/20 23:56 37 C 107 H 20 153/77 H 06/14/20 23:44 91 H 06/14/20 21:50 37.1 C 90 18 130/82 Pulse Ox 06/15/20 07:48 98 06/14/20 23:56 93 06/14/20 23:44 06/14/20 21:50 92 Laboratory Results Laboratory Results - last 24 hr 06/14/20 Unknown Stone Source Pending Stone Weight Pending Stone Composition Pending Stone Composition 2 Pending PG Care Time/CCT Total # of Minutes Spent Total Time Spent with Patient: Total time spent is greater than 50% in coordination of care (as documented) at patient's floor/unit and/or counseling patient: Coding Level of Care Code None Diagnoses Nephrolithiasis N20.0
[2020-06-15] MEDS ORDERED: PHENOBARBITAL SODIUM IV ONE ×2 (10:45→11:00)
--- NOTE | 2020-06-15 11:48 | Anesthesiology Progress Note ---
Date of Service Pt seen sedated in bed. Events of last night noted. Generally healthy middle aged male with no prior psych history nor complications after anesthesia developed severe delerium postoperatively. He improved initially in PACU but decompensated once again around midnight with profound confusion and agitation, requiring physical restraint. Was attended by hospitalist and medicated with lorazepam and haloperidol. Continues disoriented to staff and place. Now sedated with phenobarbital. Post anesthesia delerium usually resolves in a short time (hours) and is typically seen in elderly pts with some prior cognitive decline. The severity and persistence of this pt's symptoms are extremely unusual. I cannot with certainty attribute this complication to any single medication. However, I would consider it prudent to deliver an alternative anesthetic should he need surgery in the future. Specifically, I would recommend avoidance of inhalational agents and midazolam which was given in this case. Instead, total intravenous anesthesia (TIVA) could be used as it generally allows rapid and complete emergence from anesthesia. Discussed with pt's daughter and Dr. Somers. June 15, 2020 Assessment & Plan Admission and Anticipated Discharge Date Admission Date: June 14, 2020 Physical Exam Vital Signs: Last Vital Signs Temp 37 C 06/14/20 23:56 Pulse 108 H 06/15/20 11:05 Resp 18 06/15/20 11:05 BP 123/76 06/15/20 11:05 Pulse Ox 96 06/15/20 11:05 Results & Data ([facility]) Medications Administered Hydromorphone HCl (Hydromorphone Inj 1 Mg/Ml Syringe) 1 mg IV Q3H PRN PRN Reason: Severe Pain Stop: 06/28/20 01:43 Last Admin: 06/14/20 05:41 Dose: 1 mg Documented by: [id number] Ceftriaxone Sodium 2,000 mg/ (Dextrose) 70 mls @ 100 mls/hr IV Q24H [facility]; Protocol Stop: 06/24/20 03:59 Last Infusion: 06/15/20 04:59 Dose: 0 mls/hr Documented by: [id number] Admin: 06/15/20 04:13 Dose: 100 mls/hr Documented by: [id number] Infusion: 06/14/20 04:57 Dose: 0 mls/hr Documented by: [id number] Admin: 06/14/20 02:58 Dose: 100 mls/hr Documented by: [id number] Famotidine 20 mg/ Syringe 5 mls @ 2.5 mls/min IV Q12H [facility] Stop: 07/14/20 05:59 Last Admin: 06/15/20 05:09 Dose: Not Given Documented by: [id number] Admin: 06/14/20 19:59 Dose: 2.5 mls/min Documented by: [id number] Admin: 06/14/20 05:25 Dose: 2.5 mls/min Documented by: [id number] Sodium Chloride (Nss 1000ml) 1,000 mls @ 200 mls/hr IV .Q5H [facility]O Stop: 07/14/20 07:44 Last Infusion: 06/15/20 04:30 Dose: 0 mls/hr Documented by: [id number] Admin: 06/15/20 04:13 Dose: 200 mls/hr Documented by: [id number] Infusion: 06/15/20 04:13 Dose: 200 mls/hr Documented by: [id number] Admin: 06/15/20 00:09 Dose: 200 mls/hr Documented by: [id number] Infusion: 06/15/20 00:09 Dose: 200 mls/hr Documented by: [id number] Admin: 06/14/20 20:00 Dose: 200 mls/hr Documented by: [id number] Infusion: 06/14/20 17:41 Dose: 0 mls/hr Documented by: [id number] Admin: 06/14/20 12:27 Dose: 200 mls/hr Documented by: [id number] Infusion: 06/14/20 12:27 Dose: 200 mls/hr Documented by: [id number] Admin: 06/14/20 07:46 Dose: 200 mls/hr Documented by: [id number] Ketorolac Tromethamine (Ketorolac Tromethamine 15 Mg/Ml Vial) 15 mg IV Q6H PRN PRN Reason: Pain Stop: 06/19/20 07:33 Last Admin: 06/14/20 07:48 Dose: 15 mg Documented by: [id number] Metoprolol Tartrate (Metoprolol Tartrate 25 Mg Tab) 25 mg PO BID CLEO Stop: 07/14/20 20:59 Last Admin: 06/14/20 20:01 Dose: 25 mg Documented by: [id number] Ondansetron HCl (Ondansetron Inj 2 Mg/Ml 2 Ml Vial) 4 mg IV Q6H PRN PRN Reason: Nausea Stop: 07/14/20 01:43 Last Admin: 06/14/20 07:46 Dose: 4 mg Documented by: [id number] Tamsulosin HCl (Tamsulosin Hcl 0.4 Mg Cap) [facility] [place]: 07/14/20 08:59 Last Admin: 06/14/20 11:02 Dose: 0.4 mg Documented by: [id number]
[2020-06-15 13:24] LABS: Basophils # (auto) 0.02 K/uL (0-0.2); Basophils % (auto) 0.1 %; Eosinophils # (auto) 0.08 K/uL (0-0.5); Eosinophils % (auto) 0.6 %; Hematocrit (blood only) 40.4 % (42-52); Hemoglobin 13.8 g/dL (14.0-18.0); Immature Granulocytes # (auto) 0.03 K/uL (0.00-0.02); Immature Granulocytes % (auto) 0.2 %; Lymphocytes # (auto) 1.67 K/uL (1.2-3.4); Lymphocytes % (auto) 11.7 %; Mean Corpuscular Hemoglobin 30.9 pg (25-34); Mean Corpuscular Hgb Conc 34.2 g/dL (32-36); Mean Corpuscular Volume 90.6 fL (80-100); Mean Platelet Volume 8.8 fL (7.4-10.4); Monocytes # (auto) 1.83 K/uL (0.11-0.59); Monocytes % (auto) 12.8 %; Neutrophils # (auto) 10.69 K/uL (1.4-6.5); Neutrophils % (auto) 74.6 %; Platelet Count 213 K/uL (130-400); RDW Coefficient of Variation 13.5 % (11.5-14.5); Red Blood Count 4.46 M/uL (4.7-6.1); White Blood Count 14.32 K/uL (4.8-10.8)
[2020-06-15] MEDS: TAMSULOSIN HCL 0.4 MG CAP PO SCH (13:33)
[2020-06-15] MEDS: METOPROLOL TARTRATE 25 MG TAB PO SCH (13:33)
[2020-06-15 13:37] LABS: INR 1.1 (0.9-1.1); Partial Thromboplastin Ratio 1.1; Partial Thromboplastin Time 30.5 Seconds (21.0-31.0); Prothrombin Time 11.2 Seconds (9.0-12.0)
[2020-06-15 13:47] LABS: Albumin Level 3.1 gm/dl (3.4-5.0); BUN Creatinine Ratio 11.6 (10-20); Calcium 8.2 mg/dl (8.5-10.1); Creatinine Clr Calc Pharmacy 79.3 ml/min; Est GFR (African American) 85.3; Est GFR (Non-African American) 73.6; Magnesium 2.4 mg/dl (1.8-2.4); Potassium 3.7 mmol/L (3.5-5.1)
[2020-06-15 13:54] LABS: Albumin Globulin Ratio 1.1 (0.9-2); Globulin 2.8 gm/dl (2.5-4.0); Total Protein 5.9 gm/dl (6.4-8.2)
[2020-06-15] MEDS ORDERED: ZIPRASIDONE 20 MG/ML SDV IM ONE (15:26)
--- NOTE | 2020-06-15 19:11 | Discharge Summary ---
Date of Service June 15, 2020 Admission HPI Per Admitting Provider The patient is a 60-year-old male with a past medical history including GERD, hyperlipidemia, hypertension, and kidney stone 10 years ago. He presents with recurrent symptoms as noted above. He denies any recent travels or sick exposures. Work-up in the emergency department included a CT of abdomen pelvis, which showed a 6 mm distal left ureteral calculus, with moderate hydroureteronephrosis. Principal Diagnosis Left renal colic status post cystoscopy or ureteroscopy and laser lithotripsy aCute delirium postoperatively Discharge Exam The patient appeared slightly sedate Vital signs as documented. Lungs are clear to auscultation and appear unlabored Cardiac exam, Rhythm is regular.. No murmurs, rubs or gallops. Abdominal exam reveals normal bowel sounds, soft non tender, no masses Extremities are nonedematous and both pedal pulses are normal. Neurologic exam is alert and follow commands and is able ambulate he is unsteady on his feet his and daughter are aware that he was not the best idea to take him home however they wish to take him home does he feel his home environment will improve his mental status. The patient is gone through previous renal stone issues in the past has never had a reaction to this postoperatively Discharge Data Allergies Allergy/AdvReac Type Severity Reaction Status Date / Time No Known Drug Allergies Allergy Unknown . Verified 06/11/20 11:38 Consultations 06/13/20 23:48 ED Decision to Admit Stat 06/14/20 01:44 Consult Case Management - Discharge Planning Routine Consult Urology Routine Procedures Performed Operation Date: 06/14/20 16:15 Actual Procedures p Cystoscopy, Ureteroscopy, Laser Lithotripsy(Not Applicable) - Shola Sexton DO s Left Stent Placement(Not Applicable) - Shola Sexton DO Ordered Studies 06/13/20 21:03 CT abd pelvis wo con Urgent 06/14/20 17:43 FL retrograde includes kub Routine 06/15/20 08:17 CT head/brain wo con Stat Hospital Course (1) Acute delirium: Patient acute postoperative delirium does not appear to be associate with laboratory changes CT scan of the head was unremarkable although there was some motion artifact. Patient had doses of phenobarbital and Haldol throughout the day and the dose of Geodon. The family wishes to take the patient home as they feel he is mostly uncomfortable with the situation which is causing him to act out and be belligerent. They adamantly deny that he is an alcoholic or uses other alcohol or street drugs. They are aware of the risk they are taking with taking the patient home including risk to themselves in the patient's life (2) Atrial fibrillation: Patient spontaneously converted to sinus rhythm intraoperatively (3) Calculus of distal left ureter: 6 mm distal left ureteral calculus/moderate hydroureteronephrosis- Status post lithotripsy and ureteroscopy with laser. Patient was prescribed Cipro and hydrocodone on discharge by urology (4) Hydronephrosis of left kidney: See above (5) Hyperlipidemia: Patient will resume atorvastatin at home (6) Hypertension: Patient will resume valsartan at home (7) GERD (gastroesophageal reflux disease): Continues pantoprazole daily Total Time Total Time Spent Total Time Spent (In Minutes): It required greater than 30 minutes to prepare this patient for discharge Discharge Plan Discharge Items Patient Disposition: Home - Self-Care Reason For Visit: 6mm L URETERAL CALCULUS/MODERATE L HYDROURETERONEP Discharge Diagnosis: renal colic s/p cystoscopy reaction to anesthesia Activity: Resume your previous activity Lifting: Gradually increase as tolerated Bathing: No limitations Sexual Activity: When tolerated Exercise/Sports: Gradually increase as tolerated Driving/Machine Use: Resume 1 day after discharge Non-emergency contact: Urologist Call non-emergency contact if: you have any medication questions, your pain is worsening, you have a fever and your temperature is above 101.5 Follow-up/Referrals: Suzanne Adams DO [Primary Care Provider] - Diet: Regular Addtl Attending Provider Instructions: please imderstand that we are willing to keep this patient in the hospital for another night, he is at risk of falling or wandering off. If you have any questions please call 911 and return to the hospital. Please take all medications as prescribed and keep all follow-ups as scheduled. Please call our office at [phone] with any questions, concerns or need to reschedule appointments for any reason. We are happy to assist you. While you have a ureteral stent in place: Some discomfort is normal. Certain movements may trigger pain or a feeling that you need to urinate. You may also feel mild soreness or pressure before or during urination. These symptoms should go away a few days after the stent is removed. Your urine may be slightly pink or red. This is due to bleeding caused by minor irritation from the stent. This may happen on and off while you have the stent, it is not harmful and is to be expected. Medication to help minimize discomfort or bladder spasms, or to prevent infection may be prescribed. Take this as directed. Drink plenty of fluids to help flush out your urinary tract. If you go home with a catheter, wash with soapy water and a fresh washcloth twice daily. We recommend mild bar soap such as Dial or Dove. How long will you need a stent? An appointment should already be made for you for stent removal, unless directed otherwise. The stent is often taken out after the blockage in the ureter is treated or the ureter has healed. This may take 1-2 weeks, or longer. If a stent is needed for a longer period of time, it may need to be exchanged every few months. Likely prior to your followup appointment you will be asked to get an X-ray, please complete this the night before or morning of your appointment. When to call [facility] Urology at [phone]: Your urine contains heavy blood clots You are constantly leaking urine Fever of 101F or higher, chills, nausea, or vomiting Your pain is not relieved with medication The end of the stent comes out of your urethra Pending Studies at Discharge: No Stand-Alone Forms: [facility], Smoking Cessation Medications and DC Order Prescriptions: New hydrocodone-acetaminophen 5-325 mg tablet 1 tab PO Q6H PRN (Reason: pain) Qty: 15 RF: 0 ciprofloxacin HCl [Cipro] 500 mg tablet 500 mg PO BID Qty: 6 RF: 0 Continued Metamucil (sugar) Powder 1 tbsp PO DAILY Qty: 1254 RF: 0 atorvastatin 10 mg tablet 10 mg PO DAILY RF: 0 valsartan 40 mg tablet 40 mg PO DAILY RF: 0 pantoprazole 40 mg tablet,delayed release (DR/EC) 40 mg PO DAILY Qty: 30 RF: 2 simethicone 80 mg Tablet,Chewable 80 mg PO BID PRN (Reason: Gi Upset) RF: 0 polyethylene glycol 3350 [Miralax] 17 gram/dose Powder 17 g PO DAILY PRN (Reason: Constipation) RF: 0 Discharge Orders: Discharge Order (Routine); Ordered 06/15/20 Ordered By: Cisco Strickland/Other Patient Handouts: Identifying Kidney Stones Admission Data Admit Date/Time: 06/14/20 00:28 Attending Provider: Cisco Somers Admit Provider: Dashawn Mart Primary Care Provider: Suzanne Adams Other Providers: Dashawn Mart ; Willian Juan Other Interventions: Discharge Summary Assessment (RN) Last Done: 06/15/20 18:28 Coding Level of Care Code D/C Day Management >30 mins Diagnoses Acute delirium R41.0 Atrial fibrillation I48.91 Calculus of distal left ureter N20.1 Hydronephrosis of left kidney N13.30 Hyperlipidemia E78.5 Hypertension I10 GERD (gastroesophageal reflux disease) K21.9
[2020-06-16] MEDS ORDERED: INFLUENZA ADMINISTRATION CHARGE ONE (09:00)
[2020-06-16] MEDS ORDERED: INFLUENZA VIRUS QUAD VACCINE 0.5 ML SYR IM ONE (09:00)
--- NOTE | 2020-06-18 12:00 | Anesthesiology Progress Note ---
Date of Service Reached pt by phone this morning. He responded appropriately and stated that he is tired but no longer confused or agitated. Suspect psychosi he manifested was due to medications ands hospitalization. As stated previously, would avoid inhalational agents and tranquilizers as much as possible in the future. June 18, 2020 Assessment & Plan Admission and Anticipated Discharge Date Admission Date: June 14, 2020 Physical Exam Vital Signs: Last Vital Signs Temp 36.9 C 06/15/20 18:28 Pulse 107 H 06/15/20 18:28 Resp 16 06/15/20 18:28 BP 117/76 06/15/20 18:28 Pulse Ox 97 06/15/20 18:28
[2020-06-19 22:36] LABS: Component 2 DNR; Source LEFT URETERAL STONE
== END 2020-06-15 21:20 | disposition home or self-care (01) | DRG 660 ==
LOC: ED 20:24 → 2W 06-14 00:28 → SUATTDRO 06-14 00:28 → 2W 06-14 01:15 → 2S 06-15 07:45